=== PATIENT | female | born 1950 | race Caucasian/White ===

== ENCOUNTER 2022-06-05 14:07 | Emergency (ER) | payer OTHER ==
--- OUTSIDE RECORDS SUMMARY | 2022-06-05 14:10 | XMS REPORT | Continuity of Care Document ---
:1950 Author Organization [facility] t Address [address] [place] [address] Dr. Young [address] [place] [address] Care Team Providers Name Role Phone EMILEE BORRERO Attending Clinician Unavailable Doctor Unassigned, Gutierrez Attending Clinician Unavailable Emilee Borrero MD Attending Clinician Payers Payer Name Policy Type Policy Number Effective Date Expiration Date Lb tran [employer] MEDICARE ADV [id number] 2019 00:00:00 Problems This patient has no known problems. Allergies, Adverse Reactions, Alerts Allergy Allergy Status Severity Reaction(s) Onset Inactive Treating Comm ents Source Name Type Date Date Clinician NO KNOWN Drug Active Univers ALLERGIE Class ity of S [facility] Social History Social Habit Start Date Stop Date Quantity Comments Source Sex Assigned At Universit y of [facility] Exposure to Not sure [facility] SARS-CoV-2 [facility] (event) [place] Alcohol intake 2020-05-05 2020-05-05 Ex-drinker [facility] 00:00:00 00:00:00 (finding) [facility] Tobacco use and 2020-05-05 2020-05-05 Never used Universit y of exposure 00:00:00 00:00:00 [facility] Smoking Status Start Date Stop Date Source Never smoker [facility] Medications Ordered Filled Start Stop Current Ordering Indication Dosage Frequency Signature Comments Components Source Medication Medication Date Date Medication? Clinician (SIG) Name Name levothyroxi Yes Take by Uni vers ne sodium 05-05 mouth. ity of (LEVOTHYROX 19:40: [place] INE ORAL) [facility] Branch insulin Yes inject Univers glargine,hu 05-05 under the ity of m.rec.anlog 19:40: skin. [place] (BASAGLAR 29 [facility] KWIKPEN Branch U-100 INSULIN SC) GLIMEPIRIDE 2020-0 Yes Take by Uni vers ORAL 7-24 mouth. ity of 19:40: [place] [address] Medical Branch timolol 0.5 2020-0 Yes 1[drp] 1 Drop 2 Univers % 7-24 (two) ity of ophthalmic 19:40: times [place] solution 29 daily. Medical Branch levothyroxi 2020-0 Yes Take by Uni vers ne sodium 7-24 mouth. ity of (LEVOTHYROX 19:40: [place] INE ORAL) 29 Medical Branch insulin 2020-0 Yes inject Univers glargine,hu 7-24 under the ity of .rec.anlog 19:40: skin. [place] ([address] U-100 INSULIN SC) GLIMEPIRIDE 2020-0 Yes Take by Uni vers ORAL 7-24 mouth. ity of 19:40: [place] [address] Medical Branch timolol 0.5 2020-0 Yes 1[drp] 1 Drop 2 Univers % 7-24 (two) ity of ophthalmic 19:40: times [place] solution 29 daily. Medical Branch levothyroxi 2020-0 Yes Take by Uni vers ne sodium 7-24 mouth. ity of (LEVOTHYROX 19:40: [place] INE ORAL) 29 Medical Branch insulin 2020-0 Yes inject Univers glargine,hu 7-24 under the ity of .rec.anlog 19:40: skin. [place] ([address] U-100 INSULIN SC) GLIMEPIRIDE 2020-0 Yes Take by Uni vers ORAL 7-24 mouth. ity of 19:40: [place] [address] Medical Branch timolol 0.5 2020-0 Yes 1[drp] 1 Drop 2 Univers % 7-24 (two) ity of ophthalmic 19:40: times [place] solution 29 daily. Medical Branch promethazin 2020-0 Yes Take by Uni vers e HCl 7-24 mouth. ity of (PROMETHAZI 19:29: [place] NE ORAL) 23 Medical Branch LAMOTRIGINE 2020-0 Yes Take by Uni vers ORAL 7-24 mouth. ity of 19:29: [place] 23 Medical Branch promethazin 2020-0 Yes Take by Uni vers e HCl 7-24 mouth. ity of (PROMETHAZI 19:29: [place] NE ORAL) 23 Medical Branch LAMOTRIGINE 2020-0 Yes Take by Uni vers ORAL 7-24 mouth. ity of 19:29: [place] [facility] Branch promethazin 2020-0 Yes Take by Uni vers e HCl 7-24 mouth. ity of (PROMETHAZI 19:29: [place] [facility] ORAL 23 Medical Branch LAMOTRIGINE 2020-0 Yes Take by Uni vers ORAL 7-24 mouth. ity of 19:29: [place] [facility] Branch lisinopril 2020-0 Yes 40mg Take 40 mg U nivers 40 mg 7-16 by mouth ity of tablet 00:00: daily. [place] [facility] lisinopril 2020-0 Yes 40mg Take 40 mg U nivers 40 mg 7-16 by mouth ity of tablet 00:00: daily. [place] [facility] lisinopril 2020-0 Yes 40mg Take 40 mg U nivers 40 mg 7-16 by mouth ity of tablet 00:00: daily. [place] [facility] clonazePAM 2020-0 Yes TAKE 1 Unive rs 0.5 mg 6-23 TABLET BY ity of tablet 00:00: MOUTH AT [place] [address] BEDTIME Medical FOR Branch ANXIETY FOR INSOMNIA clonazePAM 2020-0 Yes TAKE 1 Unive rs 0.5 mg 6-23 TABLET BY ity of tablet 00:00: MOUTH AT [place] [address] BEDTIME Medical FOR Branch ANXIETY FOR INSOMNIA clonazePAM 2020-0 Yes TAKE 1 Unive rs 0.5 mg 6-23 TABLET BY ity of tablet 00:00: MOUTH AT [place] [address] BEDTIME Medical FOR Branch ANXIETY FOR INSOMNIA atorvastati 2020-0 Yes 40mg Take 40 mg Univers n 40 mg 6-12 by mouth ity of tablet 00:00: daily. [place] [facility] atorvastati 2020-0 Yes 40mg Take 40 mg Univers n 40 mg 6-12 by mouth ity of tablet 00:00: daily. [place] [facility] atorvastati 2020-0 Yes 40mg Take 40 mg Univers n 40 mg 6-12 by mouth ity of tablet 00:00: daily. [place] [facility] amLODIPine 2020-0 Yes 5mg Take 5 mg Un thai 5 mg tablet 6-06 by mouth ity of 00:00: daily. [place] [facility] amLODIPine 2020-0 Yes 5mg Take 5 mg Un thai 5 mg tablet 6-06 by mouth ity of 00:00: daily. [place] [facility] amLODIPine 2020-0 Yes 5mg Take 5 mg Un thai 5 mg tablet 6-06 by mouth ity of 00:00: daily. [address] Vital Signs Vital Name Observation Time Observation Value Comments Source Systolic blood 2020-05-05 19:26:00 126 mm[Hg] Univer sity of pressure [facility] Diastolic blood 2020-05-05 19:26:00 80 mm[Hg] Unive rsity [facility] Heart rate 2020-05-05 19:26:00 90 /min [facility] Body temperature 2020-05-05 19:26:00 36.61 [facility] 2020-05-05 19:26:00 18 /min [facility] Body height 2020-05-05 19:26:00 157.5 cm [facility] Body weight 2020-05-05 19:26:00 78.926 kg [facility] BMI 2020-05-05 19:26:00 31.83 kg/m2 [facility] Procedures Procedure Date / Time Performed Performing Clinician Sour e PATIENT QUESTIONNAIRE 2020-05-15 05:01:00 Doctor Unassigned, No [facility] Encounters Start End Encounter Admission Attending Care Care Encounter Source Date/Time Date/Time Type Type Clinicians Facility Department ID 2021-05-09 2021-05-09 Outpatient R ADUM, [facility] [id number] Univers 15:30:00 15:30:00 EMILEE [id number] [facility] 2021-05-09 2021-05-09 Outpatient R ADUM, [facility] [id number] Univers 15:30:00 15:30:00 EMILEE [facility] 2021-05-07 2021-05-07 Outpatient R ADUM, [facility] [id number] Univers 13:00:00 13:00:00 EMILEE [id number] [facility] 2020-12-16 2020-12-[address] [facility] [id number] Univers 15:40:00 [facility] [facility] [id number] Univers 15:30:00 [facility]:30:[facility]16 2020-05-16 [id number] Univers 15:00:00 15:00:00 EMILEE [id number] jorge l of [facility] 2020-05-15 2020-05-15 Orders Doctor ADELINE [id number] Univers 00:00:00 00:00:00 Only Unassigned, TIMO [id number] ity of Gutierrez [facility] [id number] [place] [id number] [address] 2020-05-05 2020-05-05 [facility] [id number] Univers 14:01:34 15:36:09 Visit Emilee Gore [id number] ity [id number] [id number] [address] 2020-05-05 2020-05-05 [facility] [id number] Univers 14:00:00 14:00:00 EMILEE [facility] Results This patient has no known results.
[2022-06-05] MEDS ORDERED: FAMOTIDINE 20 MG/2 ML VIAL IV ONE (15:02)
--- NOTE | 2022-06-05 15:15 | RAD REPORT ---
EXAM DESCRIPTION: CT - Head Brain Wo Cont - 06/05/2022 3:02 pm CLINICAL HISTORY: Mental status change, unknown cause COMPARISON: HEAD BRAIN W O CONTRAST dated 12/23/2008; HEAD BRAIN W O CONTRAST dated 09/04/1999 TECHNIQUE: All CT scans are performed using dose optimization technique as appropriate and may inclu de automated exposure control or mA/KV adjustment according to patient size. 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 Chronic small vessel ischemic changes. Small mucus retention cyst in the left maxillary sinus. The calvarium is intact. 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 No acute large vascular territory infarct or intracranial hemorrhage.
--- NOTE | 2022-06-05 15:19 | RAD REPORT ---
EXAM DESCRIPTION: RAD - Chest Single View - 06/05/2022 3:13 pm CLINICAL HISTORY: AMS COMPARISON: CHEST SINGLE VIEW dated 06/26/2012; CHEST PA AND LAT 2 VIEW dated 04/11/2009; CHEST SINGLE VIEW dated 12/23/2008; ABDOMEN 1 VIEW KUB dated 07/19/2008 FINDINGS: Lines: None. Lungs: No evidence of edema or pneumonia. Pleural: No significant pleural effusions or pneumothorax. Cardiac: The heart size is within normal limits. Bones: No acute fractures. Other: IMPRESSION: No acute cardiopulmonary disease.
[2022-06-05 15:39] LABS: Absolute Lymphocytes (CBC) 0.9 K/uL (0.7-4.9); Hematocrit 34.7 % (36.0-45.0); Lymphocytes % 16.8 % (15.3-44.8); MCV 96.1 fL (80-100); MPV 7.3 fL (7.6-11.3); RBC Red Blood Cell Count 3.61 M/uL (3.86-4.86)
[2022-06-05 16:52] LABS: Albumin 3.4 g/dL (3.4-5.0); Bilirubin Total 0.5 mg/dL (0.2-1.0); Magnesium 2.4 mg/dL (1.8-2.4); Protein, Total 6.8 g/dL (6.4-8.2); Troponin High Sensitivity 17.1 pg/mL (<58.9)
[2022-06-05 16:53] LABS: Potassium 2.8 mmol/L (3.5-5.1)
--- NOTE | 2022-06-05 17:14 | ER ---
Nurse's Notes [facility] Name: Lu Asher Age: 72 yrs Sex: Female : 1950 Arrival Date: 06/05/2022 Time: 14:11 Bed 10 Private MD: Diagnosis: Hypoglycemia, unspecified;Altered mental status, unspecified Presentation: 06/05 14:36 Chief complaint: Spouse and/or significant other states: Per spouse pt was not kb3 responding appropirately and he was unable to wake her at home. Upon EMS arrival BGL 28. PT received 250ml D10W, BGL increased to 136 and pt became responsive, answering questions appropriately. Coronavirus screen: Vaccine status: Patient reports receiving the 2nd dose of the covid vaccine. Client denies travel out of the [place] in the last 14 days. Ebola Screen: Patient negative for fever greater than or equal to 101.5 degrees Fahrenheit, and additional compatible Ebola Virus Disease symptoms Patient denies exposure to infectious person. Patient denies travel to an Ebola-affected area in the 21 days before illness onset. No symptoms or risks identified at this time. Initial Sepsis Screen: Does the patient meet any 2 criteria? No. Patient's initial sepsis screen is negative. Does the patient have a suspected source of infection? No. Patient's initial sepsis screen is negative. Risk Assessment: Do you want to hurt yourself or someone else? Patient reports no desire to harm self or others. Onset of symptoms was June 05, 2022 at 12:30. 14:36 Method Of Arrival: EMS: [facility] kb3 14:36 Acuity: SANGEETHA 3 kb3 Triage Assessment: 14:39 General: Appears in no apparent distress. Behavior is calm, cooperative. Pain: Denies kb3 pain. Historical: - Allergies: 14:39 No Known Allergies; kb3 - PMHx: 14:39 Depressive disorder; Diabetes mellitus; Hypertensive disorder; Hypothyroidism; Chronic kb3 pain; Anxiety; - Immunization history:: Adult Immunizations up to date, Client reports receiving the 2nd dose of the Covid vaccine, Last tetanus immunization: unknown. - Social history:: Smoking status: Patient denies any tobacco usage or history of. Screenin:00 Fall Risk None identified. No fall in past 12 months (0 pts). No secondary diagnosis (0 kb3 pts). IV access (20 points). Ambulatory Aid- None/Bed Rest/Nurse Assist (0 pts). Gait- Weak (10 pts.). Mental Status- Oriented to own ability (0 pts). Total Jenkins Fall Scale indicates Low Risk Score (25-44 pts). Fall prevention measures have been instituted. Side Rails Up X 2 Placed close to Nursing Station Frequent Obs/Assesments occuring Family Present and informed to notify staff if they need to leave bedside As available Patient and Family Educated on Fall Prevention Program and strategies. 16:00 Abuse screen: Denies threats or abuse. Denies injuries from another. Nutritional kb3 screening: No deficits noted. Tuberculosis screening: No symptoms or risk factors identified. Assessment: 14:47 General: See triage note. kb3 15:35 General: BGL 76, JUICE PROVIDED. kb3 16:00 General: BGL 86. kb3 17:00 General: BGL 86. kb3 Vital Signs: 14:36 BP 140 / 57; Pulse 56; Resp 18; Temp 98; Pulse Ox 100% ; Weight 58.97 kg; Height 5 ft. kb3 2 in. (157.48 cm); Pain 0/10; 16:00 BP 136 / 67; Pulse 64; Resp 18; Pulse Ox 99% ; Pain 0/10; kb3 17:00 BP 131 / 61; Pulse 60; Resp 18; Pulse Ox 100% ; Pain 0/10; kb3 14:36 Body Mass Index 23.78 (58.97 kg, 157.48 cm) kb3 ED Course: 14:11 Patient arrived in ED. bd 14:17 Regan Stokes MD is Attending Physician. kdr 14:35 Pat Vargas, RN is Primary Nurse. kb3 14:39 Triage completed. kb3 14:39 Arm band placed on right wrist. kb3 14:[address] via stretcher. kb3 15:03 Head Brain Wo Cont In Process Unspecified. EDMS 15:15 XRAY Chest (1 view) In Process Unspecified. EDMS 15:31 COVID-19 SARS RT PCR (Document "Date of Onset" if Symptomatic) Sent. kb3 15:31 Flu Sent. kb3 15:31 Strep Sent. kb3 15:32 CBC with Diff Sent. kb3 15:32 Magnesium Sent. kb3 15:32 NT PRO-BNP Sent. kb3 15:32 Troponin HS Sent. kb3 15:32 Inserted saline lock: 22 gauge in right antecubital area, using aseptic technique. kb3 16:00 Patient has correct armband on for positive identification. Fall risk band placed. kb3 Placed in gown. Bed in low position. Call light in reach. Side rails up X2. Adult w/ patient. 16:00 No provider procedures requiring assistance completed. kb3 16:53 Notified ED physician of a critical lab result(s). potassium 2.8. jl7 17:12 Johnathan Lai MD is Referral Physician. kdr 17:47 IV discontinued, intact, bleeding controlled, No redness/swelling at site. kb3 Administered Medications: 15:20 Drug: Pepcid (famotidine) 20 mg Route: IVP; Site: right antecubital; kb3 17:00 Follow up: Response: No adverse reaction kb3 Medication: 14:47 VIS not applicable for this client. kb3 Outcome: 17:14 Discharge ordered by . kdr 17:46 Discharged to home via wheelchair. kb3 17:46 Condition: stable 17:46 Discharge instructions given to patient, family, Instructed on discharge instructions, follow up and referral plans. medication usage, Demonstrated understanding of instructions, follow-up care, medications. 17:48 Patient left the ED. kb3 Signatures: Dispatcher [employer] EDMS Debra Esquivel Kevin, MD MD kdr Richie Garcia RN RN jl7 Pat Vargas, RN RN kb3 Corrections: (The following items were deleted from the chart) 14:39 14:36 Onset of symptoms was June 05, 2022 at 09:00 kb3 kb3 17:44 17:44 Fall Risk None identified. kb3 kb3 17:45 17:44 Abuse screen: Denies threats or abuse. Denies injuries from another. kb3 kb3 17:45 17:44 Nutritional screening: No deficits noted. kb3 kb3 17:45 17:44 Tuberculosis screening: No symptoms or risk factors identified. kb3 kb3 17:45 17:44 Fall Risk None identified. No fall in past 12 months (0 pts). No secondary kb3 diagnosis (0 pts). IV access (20 points). Ambulatory Aid- None/Bed Rest/Nurse Assist (0 pts). Gait- Weak (10 pts.). Mental Status- Oriented to own ability (0 pts). Total Jenkins Fall Scale indicates Low Risk Score (25-44 pts). Fall prevention measures have been instituted. Side Rails Up X 2 Placed close to Nursing Station Frequent Obs/Assesments occuring Family Present and informed to notify staff if they need to leave bedside As available Patient and Family Educated on Fall Prevention Program and strategies. kb3
--- NOTE | 2022-06-05 17:15 | EDPHYS ---
Physician Documentation [facility] Name: Lu Asher Age: 72 yrs Sex: Female : 1950 Arrival Date: 06/05/2022 Time: 14:11 Bed 10 Private MD: ED Physician Regan Stokes HPI: 06/05 17:32 This 72 yrs old Female presents to ER via EMS with complaints of Altered mental status. kdr 17:32 EMS was called to the residence due to the patient's fact that the patient was altered kdr and poorly responsive. They discovered that her blood glucose was approximately 30. He gave her an amp of D50 at which point her glucose increased to 130, And the patient woke up and was appropriate. On arrival in the ED, the patient still was awake and appropriate. Her glucose level decreased into the 70s. She was given oral glucose in the form of juice and other items. She maintained her level of alertness and her glucose level subsequently without issue.. Onset: The symptoms/episode began/occurred suddenly, just prior to arrival. Severity of symptoms: At their worst the symptoms were mild moderate in the emergency department the symptoms are unchanged. The patient has not experienced similar symptoms in the past. The patient has not recently seen a physician. The patient states that she has been feeling poorly for the past week or 2 and that she has not been eating well. Further her throat has been sore and is been difficult for her to eat. She has continued intermittently to take her insulin despite her poor nutrition and occasional vomiting.. Historical: - Allergies: 14:39 No Known Allergies; kb3 - PMHx: 14:39 Depressive disorder; Diabetes mellitus; Hypertensive disorder; Hypothyroidism; Chronic kb3 pain; Anxiety; - Immunization history:: Adult Immunizations up to date, Client reports receiving the 2nd dose of the Covid vaccine, Last tetanus immunization: unknown. - Social history:: Smoking status: Patient denies any tobacco usage or history of. ROS: 17:32 Constitutional: Negative for fever, chills, and weight loss, Eyes: Negative for injury, kdr pain, redness, and discharge, ENT: Negative for injury, pain, and discharge, Neck: Negative for injury, pain, and swelling, Cardiovascular: Negative for chest pain, palpitations, and edema, Respiratory: Negative for shortness of breath, cough, wheezing, and pleuritic chest pain, Abdomen/GI: Negative for abdominal pain, nausea, vomiting, diarrhea, and constipation, Back: Negative for injury and pain, : Negative for injury, bleeding, discharge, and swelling, MS/Extremity: Negative for injury and deformity, Skin: Negative for injury, rash, and discoloration, Psych: Negative for depression, anxiety, suicide ideation, homicidal ideation, and hallucinations, Allergy/Immunology: Negative for hives, rash, and allergies, Endocrine: Negative for neck swelling, polydipsia, polyuria, polyphagia, and marked weight changes, Hematologic/Lymphatic: Negative for swollen nodes, abnormal bleeding, and unusual bruising. 17:32 Neuro: Positive for altered mental status, weakness. Exam: 17:32 Constitutional: This is a well developed, well nourished patient who is awake, alert, kdr and in no acute distress. Head/Face: Normocephalic, atraumatic. Eyes: Pupils equal round and reactive to light, extra-ocular motions intact. Lids and lashes normal. Conjunctiva and sclera are non-icteric and not injected. Cornea within normal limits. Periorbital areas with no swelling, redness, or edema. Neck: Trachea midline, no thyromegaly or masses palpated, and no cervical lymphadenopathy. Supple, full range of motion without nuchal rigidity, or vertebral point tenderness. No Meningismus. Chest/axilla: Normal chest wall appearance and motion. Nontender with no deformity. No lesions are appreciated. Cardiovascular: Regular rate and rhythm with a normal S1 and S2. No gallops, murmurs, or rubs. Normal PMI, no JVD. No pulse deficits. Respiratory: Lungs have equal breath sounds bilaterally, clear to auscultation and percussion. No rales, rhonchi or wheezes noted. No increased work of breathing, no retractions or nasal flaring. Abdomen/GI: Soft, non-tender, with normal bowel sounds. No distension or tympany. No guarding or rebound. No evidence of tenderness throughout. Back: No spinal tenderness. No costovertebral tenderness. Full range of motion. Skin: Warm, dry with normal turgor. Normal color with no rashes, no lesions, and no evidence of cellulitis. MS/ Extremity: Pulses equal, no cyanosis. Neurovascular intact. Full, normal range of motion. Neuro: Awake and alert, GCS 15, oriented to person, place, time, and situation. Cranial nerves II-XII grossly intact. Motor strength 5/5 in all extremities. Sensory grossly intact. Cerebellar exam normal. Normal gait. Psych: Awake, alert, with orientation to person, place and time. Behavior, mood, and affect are within normal limits. 17:54 ECG was reviewed by the Attending Physician. kdr Vital Signs: 14:36 BP 140 / 57; Pulse 56; Resp 18; Temp 98; Pulse Ox 100% ; Weight 58.97 kg; Height 5 ft. kb3 2 in. (157.48 cm); Pain 0/10; 16:00 BP 136 / 67; Pulse 64; Resp 18; Pulse Ox 99% ; Pain 0/10; kb3 17:00 BP 131 / 61; Pulse 60; Resp 18; Pulse Ox 100% ; Pain 0/10; kb3 14:36 Body Mass Index 23.78 (58.97 kg, 157.48 cm) kb3 MDM: 17:14 Patient medically screened. kdr 17:32 Data reviewed: vital signs, nurses notes, lab test result(s), radiologic studies. kdr Counseling: I had a detailed discussion with the patient and/or guardian regarding: the historical points, exam findings, and any diagnostic results supporting the discharge/admit diagnosis, lab results, radiology results, the need for further work-up and treatment in the hospital. 06/05 14:33 Order name: Glucose, Ancillary Testing; Complete Time: 15:57 EDMS 06/05 14:37 Order name: CBC with Diff; Complete Time: 15:57 [facility] 06/05 14:37 Order name: Magnesium [facility] 06/05 14:37 Order name: NT PRO-BNP [facility] 06/05 14:37 Order name: Troponin HS [facility] 06/05 14:37 Order name: Comprehensive Metabolic Panel [facility] 06/05 14:37 Order name: XRAY Chest (1 view); Complete Time: 15:57 [facility] 06/05 14:38 Order name: Strep; Complete Time: 15:57 kdr 06/05 14:39 Order name: Flu; Complete Time: 16:35 [facility] 06/05 14:39 Order name: COVID-19 SARS RT PCR (Document "Date of Onset" if Symptomatic); Complete kdr Time: 16:35 06/05 15:38 Order name: Glucose, Ancillary Testing; Complete Time: 15:57 EDMS 06/05 15:48 Order name: Throat Culture EDMS 06/05 16:14 Order name: Glucose, Ancillary Testing; Complete Time: 16:35 EDMS 06/05 17:45 Order name: Glucose, Ancillary Testing EDMS 06/05 14:37 Order name: EKG; Complete Time: 14:38 kdr 06/05 14:37 Order name: Cardiac monitoring; Complete Time: 15:31 kdr 06/05 14:37 Order name: EKG - Nurse/Tech; Complete Time: 15:31 kdr 06/05 14:37 Order name: IV Saline Lock; Complete Time: 15:32 kdr 06/05 14:37 Order name: Labs collected and sent; Complete Time: 15:32 kdr 06/05 14:37 Order name: O2 Per Protocol; Complete Time: 15:32 kdr 06/05 14:37 Order name: O2 Sat Monitoring; Complete Time: 15:32 kdr 06/05 14:38 Order name: CT Head Brain wo Cont kdr 06/05 14:42 Order name: Head Brain Wo Cont; Complete Time: 15:57 EDMS 06/05 14:42 Order name: FSBS: Every 30 minutes; Complete Time: 15:31 kdr EC:54 Rate is 55 beats/min. Rhythm is regular, Sinus bradycardia with No ectopy. QRS [place] is kdr Normal. [place] interval is normal. QRS interval is normal. QT interval is normal. Clinical impression: NSR w/ Non-specific ST/T Changes and Sinus bradycardia. Administered Medications: 15:20 Drug: Pepcid (famotidine) 20 mg Route: IVP; Site: right antecubital; kb3 17:00 Follow up: Response: No adverse reaction kb3 Disposition Summary: 06/05/22 17:14 Discharge Ordered Location: Home kdr Problem: an acute exacerbation kdr Symptoms: are resolved kdr Condition: Stable kdr Diagnosis - Hypoglycemia, unspecified kdr - Altered mental status, unspecified kdr Followup: kdr - With: Johnathan Lai MD - When: 2 - 3 days - Reason: If symptoms return, Further diagnostic work-up, Recheck today's complaints, Continuance of care, Re-evaluation by your physician Discharge Instructions: - Discharge Summary Sheet kdr - Hypoglycemia, [id number] kdr - Preventing Hypoglycemia kdr Forms: - Medication Reconciliation Form kdr - Thank You Letter kdr Signatures: Dispatcher Amyst Regan Crowley MD MD kdr Pat Vargas, RN RN kb3
[2022-06-05 20:06] VITALS: TEMP 98
[2022-06-05 20:17] VITALS: BP 131/61; O2SAT 100
--- NOTE | 2022-06-06 15:13 | EKG ---
Test Date: 2022-06-05 Test Time: 15:14:55 Pyridine Recovery Operator: PAXTON MEASUREMENT RESULTS: Intervals: Rate: 55 MA: 168 QRSD: 138 QT: 542 QTc: 518 [place]: P: 49 MA: 168 QRS: 17 T: 35 INTERPRETIVE STATEMENTS: Sinus bradycardia Right bundle branch block Abnormal ECG Compared to ECG 06/26/2012 17:00:17 Right bundle-branch block now present Sinus tachycardia no longer present Electronically Signed On 06-06-22 15:11:49 CDT by Pierre Connolly
== END 2022-06-05 17:48 | disposition home or self-care (01) ==
LOC: ER 14:07
DX: E11.649 Type 2 diabetes mellitus with hypoglycemia without coma (principal); I10 Essential (primary) hypertension; Z20.822 Contact with and (suspected) exposure to COVID-19
CPT/HCPCS: 87070; 85025; 36415; 83735; 82947 ×4; 87081; 84484; 80053; 83880; 87804 ×2; 70450; 71045; U0003; 93005

== ENCOUNTER → 2022-08-05 | Day surgery (SDC) | payer OTHER ==
[2022-08-02 16:22] LABS: Absolute Lymphocytes (CBC) 1.7 K/uL (0.7-4.9); Hematocrit 33.1 % (36.0-45.0); Lymphocytes % 28.9 % (15.3-44.8); MCV 94.1 fL (80-100); MPV 6.5 fL (7.6-11.3); RBC Red Blood Cell Count 3.52 M/uL (3.86-4.86)
[2022-08-02 16:42] LABS: ALT/SGPT 20 U/L (12-78); AST/SGOT 9 U/L (15-37); Alkaline Phosphatase 61 U/L (45-117); Amylase 60 U/L (25-115); BUN Blood Urea Nitrogen 38 mg/dL (7-18); Bicarbonate 21 mmol/L (21-32); Bilirubin Total 0.4 mg/dL (0.2-1.0); Glomerular Filtration Rate 29 ml/min (=/>90); Glucose Level 122 mg/dL (74-106); Lipase 305 U/L (73-393); Potassium 4.3 mmol/L (3.5-5.1); Protein, Total 7.6 g/dL (6.4-8.2); Sodium Level 139 mmol/L (136-145)
[2022-08-02 16:45] LABS: Bilirubin Direct < 0.1 mg/dL (0-0.2)
[~2022-08-05] MED LIST: CEFOXITIN SODIUM 1 GM/VIAL ONE; CODEINE 30MG/APAP 300MG TAB ONE; FENTANYL CITR 100 MCG/2 ML ONE; GLYCOPYRROLATE 0.2 MG/ML SYR ONE; KETOROLAC 30 MG/ML INJ ONE; LIDOCAINE 2% MPF 5 ML VIAL ONE; MIDAZOLAM HCL 2 MG/2 ML INJ ONE; NA CHLORIDE 0.9% 1,000 ML ONE; NEOSTIGMINE 1 MG/ML -5 ML ONE; NS 0.9% VIAL 10 ML ONE; ONDANSETRON 4 MG/2 ML VIAL ONE; Phenylephrine HCl 10 MG/ML 1 ML VIAL ONE; ROCURONIUM 50 MG/5 ML VIAL IV ONE; dexAMETHasone 10 MG/ML VIAL ONE; propofoL 200 MG/20 ML VIAL IV ONE
--- NOTE | 2022-08-05 10:20 | P.BOP ---
Preoperative diagnosis: Acute cholecystitis, sympt cholelithiasis, RUQ abd pain Postoperative diagnosis: same Primary procedure: Laparoscopic cholecystectomy Dye Maker: LETICIA VELAZQUEZ (WAREHOUSE REPRESENTATIVE) Estimated blood loss: <10cc Specimen: gb Findings: as above Anesthesia: General Complications: None Transferred to: Recovery Room Condition: Good
[2022-08-05] MEDS: HYDROMORPHONE HCL 1 MG/ML INJ ONE ×2 (10:39→10:49)
--- NOTE | 2022-08-05 12:41 | DS ---
Diagnoses: Acute cholecystitis, symptomatic cholelithiasis, right upper quadrant abdominal pain. Procedure: Laparoscopic cholecystectomy. Disposition: Home. Activity: As tolerated. No heavy lifting. Follow up in my office in 1 week. Call for appointment at [phone]. Keep area dry for 48 hours, then may shower. MUNA Voice ID: [id number] Report ID: [id number]
--- NOTE | 2022-08-05 12:41 | OP ---
Date of Procedure: 08/05/2022 Surgeon: Francisco Javier Howell MD Lube Technician: Joanne Ramirez. Preoperative Diagnoses: Acute cholecystitis, symptomatic cholelithiasis, right upper quadrant abdomi nal pain. Postoperative Diagnoses: Acute cholecystitis, symptomatic cholelithiasis, right upper quadrant abdom inal pain. Procedure: Laparoscopic cholecystectomy. Estimated Blood Loss: Less than 10 mL. Specimen: Gallbladder. Anesthesia: General plus local. Indication: This is the case of a 72-year-old patient, who comes to us with above diagnoses. Fully explained the benefits, alternatives, and risks of laparoscopic possible open cholecystectomy, which include, but not limited to infection, bleeding, damage to adjacent structures, anesthesia complicati on, choledocholithiasis, bile leak, pancreatitis, [place], and even . She also understands this may not relieve any symptoms. She might need more than one surgical intervention. She understood, erik d a consent. Procedure In Detail: The patient was brought to the operating room, placed in supine position. Anes thesia was done without complication. Abdominal area was prepped and draped in the usual sterile fas hion. Marcaine 0.5% was injected for local anesthetic followed by sharp incision of the skin in the supraumbilical region. The incision was carried down to fascia, which was opened under direct vision . Peritoneum was encountered, opened under direct vision. Vicryl #1 placed inside the fascia. Villa on trocar was carefully introduced. Pneumoperitoneum was obtained. I placed 3 more trocars, 5 mm ea ch one of them in the epigastric right upper quadrant area under direct visualization. This allowed me to visualize the area of the gallbladder, still looked distended, barely can hold it, so I proceed ed to deflate the gallbladder partially with the help of Endo needle under direct visualization. Nee dle was removed once again under direct visualization. Grasper was placed on the puncture site and t hat will be in the fundus of the gallbladder, another grasper in the infundibulum, retracting the gal lbladder in the inferolateral fashion, exposing the triangle of Calot, and obtaining critical view. Cystic duct and cystic artery were clearly isolated, freed circumferentially and a connection between those and the gallbladder were clearly identified. I proceeded to ligate those by using at least 3 clips proximal, 1 clip distal, ligation in middle. Same was done with the cystic artery. No bile le ak. No bleeding. The gallbladder was removed from liver using Bovie cauterizer and removed from abd ominal cavity using EndoCatch through the umbilical incision. The area was inspected once again. No bile leak. No bleeding. Clips were intact. At that moment, I proceeded to remove the trocars unde r direct vision. Deflated the pneumoperitoneum. Closed the fascia with #1 Vicryl. Irrigated the crouch bcutaneous tissue, closed that with 3-0 chromic and skin with rita. Sponge count, instrument coun ts correct. The patient tolerated the procedure well. The patient was sent to recovery in stable co ndition. JOSE/ANNA Voice ID: [id number] Report ID: [id number]
[2022-08-05 14:37] VITALS: BP 95/51; TEMP 96.2; O2SAT 96
== END | disposition home or self-care (01) ==
LOC: OR 08:18
PROVIDERS: ATTEND Surgery
PROC: 0FT44ZZ Resection of Gallbladder, Percutaneous Endoscopic Approach (ICD-10-PCS; principal; 2022-08-05 10:30)
DX: K80.10 Calculus of gallbladder with chronic cholecystitis without obstruction (principal); R10.11 Right upper quadrant pain; E78.00 Pure hypercholesterolemia, unspecified; E11.9 Type 2 diabetes mellitus without complications; F32.A Depression, unspecified
CPT/HCPCS: 85025; 80048; 36415; 82150; 82947 ×2; 80076; 88304; 83690; 47562; J2704; J2370; J2001; J3010; J1100; A4216 ×2; J1170; J2710; J7030; J0694; J2405; J2250

== ENCOUNTER 2022-10-23 17:42 | Inpatient (IN) | payer OTHER ==
--- OUTSIDE RECORDS SUMMARY | 2022-10-23 17:45 | XMS REPORT | Continuity of Care Document ---
:1950 [address] [facility] t Address [address] [place] [address] [address]. [address] [place] [address] Care Team Providers Name Role Phone EMILEE BORRERO Attending Clinician Unavailable Doctor Unassigned, Antares Attending Clinician Unavailable Emilee Borrero MD Attending Clinician Payers Payer Name Policy Type Policy Number Effective Date Expiration Date Lb tran [employer] MEDICARE ADV [id number] 2019 00:00:00 Problems This patient has no known problems. Allergies, Adverse Reactions, Alerts Allergy Allergy Status Severity Reaction(s) Onset Inactive Treating Comm ents Source Name Type Date Date Clinician NO KNOWN Drug Active Univers ALLERGIE Class ity of [facility] Social History Social Habit Start Date Stop Date Quantity Comments [facility] Exposure to Not sure [facility] SARS-CoV-2 [facility] (event) [place] Alcohol intake 2020-05-05 2020-05-05 Ex-drinker [facility] 00:00:00 00:00:00 (finding) [facility] Tobacco use and 2020-05-05 2020-05-05 Never used Universit y of exposure 00:00:00 00:00:00 [facility] Smoking Status Start Date Stop Date Source Never smoker [facility] Medications Ordered Filled Start Stop Current Ordering Indication Dosage Frequency Signature Comments Components Source Medication Medication Date Date Medication? Clinician (SIG) Name Name levothyroxi Yes Take by Uni vers ne sodium 05-05 mouth. ity of (LEVOTHYROX 19:40: [place] INE ORAL) [facility] Branch insulin Yes inject Univers glargine,hu 05-05 under the ity of m.rec.anlog 19:40: skin. [place] (BASAGLAR [facility] KWIKPEN Branch U-100 INSULIN SC) GLIMEPIRIDE 2020-0 Yes Take by Uni vers ORAL 7-24 mouth. ity of 19:40: [place] 29 Medical Branch timolol 0.5 2020-0 Yes 1[drp] 1 Drop 2 Univers % 7-24 (two) ity of ophthalmic 19:40: times [place] solution 29 daily. Medical Branch levothyroxi 2020-0 Yes Take by Uni vers ne sodium 7-24 mouth. ity of (LEVOTHYROX 19:40: [place] INE ORAL) 29 Medical Branch insulin 2020-0 Yes inject Univers glargine,hu 7-24 under the ity of m.rec.anlog 19:40: skin. [place] ([address] U-100 INSULIN SC) GLIMEPIRIDE 2020-0 Yes Take by Uni vers ORAL 7-24 mouth. ity of 19:40: [place] [address] Medical Branch timolol 0.5 2020-0 Yes 1[drp] 1 Drop 2 Univers % 7-24 (two) ity of ophthalmic 19:40: times [place] solution 29 daily. Medical Branch levothyroxi 2020-0 Yes Take by Uni vers ne sodium 7-24 mouth. ity of (LEVOTHYROX 19:40: [place] INE ORAL) 29 Medical Branch insulin 2020-0 Yes inject Univers glargine,hu 7-24 under the ity of .rec.anlog 19:40: skin. [place] ([address] U-100 INSULIN SC) GLIMEPIRIDE 2020-0 Yes Take by Uni vers ORAL 7-24 mouth. ity of 19:40: [place] [address] Medical Branch timolol 0.5 2020-0 Yes 1[drp] [...] HCl 7-24 mouth. ity of (PROMETHAZI 19:29: [place] NE ORAL 23 Medical Branch LAMOTRIGINE 2020-0 Yes [...] BY ity of tablet 00:00: MOUTH AT [place] [address] BEDTIME Medical FOR Branch ANXIETY FOR INSOMNIA clonazePAM 2020-0 Yes TAKE 1 Unive rs 0.5 mg 6-23 TABLET BY ity of tablet 00:00: MOUTH AT [place] [address] BEDTIME Medical FOR Branch ANXIETY FOR INSOMNIA clonazePAM 2020-0 Yes TAKE 1 Unive rs 0.5 mg 6-23 TABLET BY ity of tablet 00:00: MOUTH AT [place] [address] BEDTIME Medical FOR Branch ANXIETY FOR INSOMNIA [...] 6-06 by mouth ity of 00:00: daily. [address] Vital Signs Vital Name Observation Time Observation Value Comments Source Systolic blood 2020-05-05 19:26:00 126 mm[Hg] Univer sity of pressure [facility] Diastolic blood 2020-05-05 19:26:00 80 mm[Hg] Unive rsity [facility] Heart rate 2020-05-05 19:26:00 90 /min [facility] Body temperature 2020-05-05 19:26:00 36.61 Brittni [facility] Res[facility] rate 2020-05-05 19:26:00 18 /min [facility] Body height 2020-05-05 19:26:00 157.5 cm [facility] Body weight 2020-05-05 19:26:00 78.926 kg [facility] BMI 2020-05-05 19:26:00 31.83 kg/m2 [facility] Procedures Procedure Date / Time Performed Performing Clinician [facility] e PATIENT QUESTIONNAIRE 2020-05-15 05:01:00 Doctor Unassloly, Phyllis [facility] Encounters Start End Encounter Admission Attending Care Care Encounter Source Date/Time Date/Time Type Type Clinicians Facility Department ID 2021-05-09 2021-05-09 Outpatient R GISSELL, [facility] [id number] Univers 15:30:00 15:30:00 [facility] 2020-12-16 2020-12-16 Outpatient [facility] [id number] Univers 15:40:00 15:40:00 ity [facility] 2020-11-18 2020-11-18 Outpatient [facility] [id number] Univers 15:30:00 15:30:[facility] 2020-05-15 2020-05-15 Orders Doctor LR [id number] Univers 00:00:00 00:00:00 Only Unassigned, TIMO [id number] ity of [facility] [id number] Georgi as [id number] [address] 2020-05-05 2020-05-05 [facility] [id number] Univers 14:01:34 15:36:09 Visit Emilee Gore [id number] Mary [id number] Rhianna Gonzalez [id number] [facility] [address] 2020-05-05 2020-05-05 Outpatient Axel BORRERO [facility] [id number] [facility] 14:00:00 14:00:00 EMILEE coats [facility] Results This patient has no known results.
[2022-10-23 18:53] LABS: Urine Blood Trace-intact (Negative); Urine Glucose Negative (Negative); Urine Protein 2+ (Negative); Urine pH 5.5 (5.0-7.0)
[2022-10-23 19:10] LABS: Absolute Lymphocytes (CBC) 1.2 K/uL (0.7-4.9); Hematocrit 30.2 % (36.0-45.0); Lymphocytes % 17.7 % (15.3-44.8); MCV 89.7 fL (80-100); MPV 6.2 fL (7.6-11.3); RBC Red Blood Cell Count 3.37 M/uL (3.86-4.86)
[2022-10-23 19:27] LABS: Bilirubin Total 0.5 mg/dL (0.2-1.0); Protein, Total 7.8 g/dL (6.4-8.2)
[2022-10-23 19:37] LABS: Potassium 2.8 mmol/L (3.5-5.1)
--- NOTE | 2022-10-23 20:35 | EDPHYS ---
Physician Documentation [facility] Name: Lu Asher Age: 72 yrs Sex: Female : 1950 Arrival Date: 10/23/2022 Time: 17:49 Bed 13 Private MD: Maxiimliano Mejia ED Physician Josselyn Lambert HPI: 10/23 18:36 This 72 yrs old Female presents to ER via Ambulatory with complaints of Abnormal Lab pm1 Results. 18:36 Patient presented to ER as instructed by Dr. Morin For evaluation of abnormal renal pm1 function. Severity of symptoms: in the emergency department the symptoms are worse. The patient has experienced similar episodes in the past, chronically. 72-year-old female presents to the ER with complaints of abnormal renal function. Patient reports she had labs drawn this AM for preop for hemorrhoid surgery with Dr Howell. Patient was sent for evaluation in the ER by Dr Morin and she discussed the case with Dr Lambert. She would like the patient to be admitted to the hospital. Patient does not have any complaints except for abnormal labs. Historical: - Allergies: 18:33 No Known Allergies; aa5 - PMHx: 18:33 Anxiety; Chronic pain; depressive disorder; diabetes mellitus; Hypertensive disorder; aa5 Hypothyroidism; - Immunization history:: Adult Immunizations unknown. - Social history:: Smoking status: Patient denies any tobacco usage or history of. ROS: 18:36 Constitutional: Negative for fever, chills, and weight loss, Cardiovascular: Negative pm1 for chest pain, palpitations, and edema, Respiratory: Negative for shortness of breath, cough, wheezing, and pleuritic chest pain, Abdomen/GI: Negative for abdominal pain, nausea, vomiting, diarrhea, and constipation. 18:36 : Negative for injury, bleeding, discharge, and swelling, MS/Extremity: Negative for injury and deformity, Skin: Negative for injury, rash, and discoloration, Neuro: Negative for headache, weakness, numbness, tingling, and seizure. 18:36 Back: Positive for chronic back pain. 18:36 All other systems are negative. Exam: 18:36 Constitutional: This is a well developed, well nourished patient who is awake, alert, pm1 and in no acute distress. Head/Face: Normocephalic, atraumatic. 18:36 Back: No spinal tenderness. No costovertebral tenderness. Full range of motion. Skin: Warm, dry with normal turgor. Normal color with no rashes, no lesions, and no evidence of cellulitis. MS/ Extremity: Pulses equal, no cyanosis. Neurovascular intact. Full, normal range of motion. 18:36 Eyes: Exam is negative for acute changes, Extraocular movements: no acute changes, Conjunctiva: no acute changes, no injection. 18:36 Cardiovascular: Exam negative for acute changes, Rate: normal, Rhythm: regular, Pulses: no pulse deficits are appreciated, Heart sounds: normal. 18:36 Respiratory: Exam negative for acute changes, respiratory distress, shortness of breath, Breath sounds: are clear throughout. 18:36 Abdomen/GI: Inspection: abdomen appears normal, Palpation: abdomen is soft and non-tender, in all quadrants. 18:36 Neuro: Exam negative for acute changes, Orientation: is normal, Mentation: is normal, Motor: is normal, moves all fours. Vital Signs: 18:29 BP 114 / 76; Pulse 82; Resp 16 S; Temp 97.7(TE); Pulse Ox 100% on R/A; Weight 57.61 kg aa5 (R); Height 5 ft. 2 in. (157.48 cm); 19:58 BP 125 / 64; Pulse 74; Resp 16; Pulse Ox 100% on R/A; Pain 0/10; mb9 21:29 BP 130 / 73; Pulse 68; Resp 14; Pulse Ox 100% on R/A; mb9 22:22 BP 124 / 76; Pulse 64; Resp 16; Pulse Ox 100% on R/A; mb9 23:36 BP 131 / 73; Pulse 61; Resp 17; Pulse Ox 99% on R/A; mb9 18:29 Body Mass Index 23.23 (57.61 kg, 157.48 cm) aa5 MDM: 18:34 Patient medically screened. pm1 19:25 Data reviewed: vital signs. pm1 20:18 ED course: Call to Dr Lai. No answer and voice mail full. pm1 20:20 ED course: Call to Dr Morin. No answer. Will admit the patient to hospital as she pm1 requested when she discussed the patient with Dr Lambert. 20:31 Counseling: I had a detailed discussion with the patient and/or guardian regarding: the pm1 historical points, exam findings, and any diagnostic results supporting the discharge/admit diagnosis, lab results, the need for further work-up and treatment in the hospital. 10/23 18:34 Order name: CBC with Diff; Complete Time: 19:23 pm1 10/23 18:34 Order name: CMP; Complete Time: 19:37 pm1 10/23 18:53 Order name: Urine Dipstick-Ancillary; Complete Time: 19:23 EDMS 10/23 20:46 Order name: SARS RAPID; Complete Time: 21:38 mb9 10/24 02:56 Order name: CBC with Automated Diff EDMS 10/24 02:56 Order name: Basic Metabolic Panel EDMS 10/23 18:34 Order name: IV Saline Lock; Complete Time: 19:04 pm1 10/23 18:34 Order name: Urine Dipstick-Ancillary (obtain specimen); Complete Time: 18:52 pm1 Administered Medications: 20:45 Drug: NS 0.9% 1000 ml Route: IV; Rate: 100 ml/hr; Site: right antecubital; mb9 Disposition Summary: 10/23/22 20:35 Hospitalization Ordered Hospitalization Status: Observation pm1 Provider: Johnathan Lai pm1 Condition: Stable pm1 Problem: new pm1 Symptoms: are unchanged pm1 Bed/Room Type: Standard pm1 Location: Telemetry/MedSurg (observation)(10/24/22 07:23) Room Assignment: [facility](10/24/22 07:25) em1 Diagnosis - Acute on Chronic Renal Failure pm1 Forms: - Medication Reconciliation Form pm1 - SBAR form pm1 Signatures: Dispatcher [employer] Evelin Jane RN [place] em1 Libby Roberts RN RN Barbie Smallwood RN RN Gareth Maradiaga NP SLUBBER RUNNER pm1 Lu Way RN RN mb9 Corrections: (The following items were deleted from the chart) 23:48 20:35 Telemetry/MedSurg (observation) pm1 cg 23:48 20:35 pm1 10/24 07:23 10/23 23:48 [facility] ER HOLD cg 10/24 07:23 10/23 23:48 ERHOLD- cg 10/24 07: 07:23 dw dw 07:25 232 dw em1
--- NOTE | 2022-10-23 20:35 | ER ---
Nurse's Notes [facility] Name: Lu Asher Age: 72 yrs Sex: Female : 1950 Arrival Date: 10/23/2022 Time: 17:49 Bed 13 Private MD: Maximiliano Mejia Diagnosis: Acute on Chronic Renal Failure Presentation: 10/23 18:29 Method Of Arrival: Ambulatory aa5 18:29 Chief complaint: Patient states: Sent here by Dr. Howell for Creatinine of 4.51, aa5 reports labs were for pre-op. Reports on and off nausea/vomiting for "weeks". Pt sent by Dr. Morin (nephrology). Coronavirus screen: At this time, the client does not indicate any symptoms associated with coronavirus-19. Ebola Screen: Patient denies travel to an Ebola-affected area in the 21 days before illness onset. Initial Sepsis Screen: Does the patient meet any 2 criteria? No. Patient's initial sepsis screen is negative. Does the patient have a suspected source of infection? No. Patient's initial sepsis screen is negative. Risk Assessment: Do you want to hurt yourself or someone else? Patient reports no desire to harm self or others. Onset of symptoms was October 2022. 18:29 Acuity: SANGEETHA 3 aa5 Historical: - Allergies: 18:33 No Known Allergies; aa5 - PMHx: 18:33 Anxiety; Chronic pain; depressive disorder; diabetes mellitus; Hypertensive disorder; aa5 Hypothyroidism; - Immunization history:: Adult Immunizations unknown. - Social history:: Smoking status: Patient denies any tobacco usage or history of. Screenin:45 [facility] ED Fall Risk Assessment (Adult) History of falling in the last 3 months, mb9 including since admission No falls in past 3 months (0 pts) Confusion or Disorientation No (0 pts) Intoxicated or Sedated No (0 pts) Impaired Gait No (0 pts) Mobility Assist Device Used No (0 pt) Altered Elimination No (0 pt) Score/Fall Risk Level 0 - 2 = Low Risk Oriented to surroundings, Maintained a safe environment, Educated pt \\T\\ family on fall prevention, incl call for assistance when getting out of bed. Abuse screen: Denies threats or abuse. Nutritional screening: No deficits noted. Tuberculosis screening: No symptoms or risk factors identified. Assessment: 19:25 Reassessment: pt brought back to room 13. mb9 19:57 General: Appears in no apparent distress. comfortable, Behavior is cooperative, mb9 appropriate for age. Pain: Denies pain. Neuro: Browne Agitation-Sedation Scale (RASS): 0 - Alert and Calm Level of Consciousness is awake, alert, obeys commands, Oriented to person, place, time, situation, Appropriate for age. Cardiovascular: Capillary refill < 3 seconds is brisk Patient's skin is warm and dry. Rhythm is regular. Respiratory: Airway is patent Respiratory effort is even, unlabored, Respiratory pattern is regular, symmetrical. GI: Abdomen is flat, non-distended, Bowel sounds present X 4 quads. Abd is soft and non tender X 4 quads. Reports nausea. : No signs and/or symptoms were reported regarding the genitourinary system. EENT: No signs and/or symptoms were reported regarding the EENT system. Derm: Skin is pink, warm \\T\\ dry. Musculoskeletal: Range of motion: intact in all extremities. 21:29 Reassessment: No changes from previously documented assessment. Patient and/or family mb9 updated on plan of care and expected duration. Pain level reassessed. Patient is alert, oriented x 3, equal unlabored respirations, skin warm/dry/pink. 22:22 Reassessment: No changes from previously documented assessment. Patient and/or family mb9 updated on plan of care and expected duration. Pain level reassessed. Patient is alert, oriented x 3, equal unlabored respirations, skin warm/dry/pink. 23:36 Reassessment: No changes from previously documented assessment. Patient and/or family mb9 updated on plan of care and expected duration. Pain level reassessed. Patient is alert, oriented x 3, equal unlabored respirations, skin warm/dry/pink. Vital Signs: 18:29 BP 114 / 76; Pulse 82; Resp 16 S; Temp 97.7(TE); Pulse Ox 100% on R/A; Weight 57.61 kg aa5 (R); Height 5 ft. 2 in. (157.48 cm); 19:58 BP 125 / 64; Pulse 74; Resp 16; Pulse Ox 100% on R/A; Pain 0/10; mb9 21:29 BP 130 / 73; Pulse 68; Resp 14; Pulse Ox 100% on R/A; mb9 22:22 BP 124 / 76; Pulse 64; Resp 16; Pulse Ox 100% on R/A; mb9 23:36 BP 131 / 73; Pulse 61; Resp 17; Pulse Ox 99% on R/A; mb9 18:29 Body Mass Index 23.23 (57.61 kg, 157.48 cm) aa5 ED Course: 17:49 Patient arrived in ED. am2 17:50 Maximiliano Mejia MD is Private Physician. am2 18:29 Gareth Cisneros NP is PHCP. pm1 18:29 Josselyn Lambert MD is Attending Physician. pm1 18:29 Arm band placed on. aa5 18:33 Triage completed. aa5 18:45 Placed in gown. Bed in low position. Call light in reach. Side rails up X 1. Client mb9 placed on continuous cardiac and pulse oximetry monitoring. NIBP monitoring applied. 19:04 CBC with Diff Sent. oe 19:04 CMP Sent. oe 19:04 Initial lab(s) drawn, by me, sent to lab. Inserted saline lock: 20 gauge in right bc6 antecubital area, using aseptic technique. 19:[address], ISABEL is Primary Nurse. mb9 19:36 Notified Nurse Practitioner and/or Physician Mechanical Repair Worker of a critical lab result(s), bb potassium of 2.8, creatinine of 5.21 Gareth Cisneros NP notified. 20:32 Johnathan Lai MD is Hospitalizing Provider. pm1 21:29 SARS RAPID Sent. mb9 10/24 03:27 Primary Nurse role handed off by Lu Way, ISABEL wm Administered Medications: 10/23 20:45 Drug: NS 0.9% 1000 ml Route: IV; Rate: 100 ml/hr; Site: right antecubital; mb9 Medication: 22:23 VIS not applicable for this client. mb9 Outcome: 20:35 Decision to Hospitalize by Provider. pm1 10/24 08:58 Patient left the ED. vg1 Signatures: Li Bah RN RN bb Libby Roberts RN RN aa5 Gareth Cisneros, CHAD COMPUTER ANALYST pm1 Nilesh Mix Amanda am2 Tierra Dsouza RN RN vg1 Mi Sheets, Lu Holder, RN RN mb9 Mitzi Hernandez bc6 Corrections: (The following items were deleted from the chart) 10/23 18:33 18:29 Method Of Arrival: Ambulatory aa5 aa5 18:33 18:29 Chief complaint: Patient states: Sent here by Dr. Howell for Creatinine of aa5 4.51, reports labs were for pre-op. Reports on and off nausea/vomiting for "weeks". Pt sees Dr. Morin (nephrology). aa5
[2022-10-23] MEDS ORDERED: NA CHLORIDE 0.9% 1,000 ML ONE (20:50)
[2022-10-23 21:38] LABS: SARS-CoV-2 Antigen Rapid Res Negative (Negative)
[2022-10-23] MEDS: NA CHLORIDE 0.9% 1,000 ML IV SCH (23:25)
[2022-10-23 23:43] VITALS: BMI 23.3
[2022-10-24 02:22] LABS: Absolute Lymphocytes (CBC) 1.6 K/uL (0.7-4.9); Hematocrit 29.3 % (36.0-45.0); MPV 6.1 fL (7.6-11.3); RBC Red Blood Cell Count 3.26 M/uL (3.86-4.86)
[2022-10-24 02:56] LABS: Potassium 2.9 mmol/L (3.5-5.1)
[2022-10-24] MEDS ORDERED: POTASSIUM CL 40 MEQ in NA CHLORIDE 0.9% 500 ML IV SCH (09:00)
[2022-10-24] MEDS: NA CHLORIDE 0.9% 1,000 ML IV SCH ×2 (09:38→15:30)
--- NOTE | 2022-10-24 16:20 | P.HP ---
Certification for Inpatient Patient admitted to: Inpatient With expected LOS: >2 Midnights Practitioner: I am a practitioner with admitting privileges, knowledge of patient current condition, hospital course, and medical plan of care. Services: Services provided to patient in accordance with Admission requirements found in Title 42 Section 412.3 of the Code of Federal Regulations Patient History Date of Service: 10/24/22 Reason for admission: LOW K AND HIGH CREAT History of Present Illness: ELIAZAR HAS NO SS AND WAS SENT TO ER BY DR JIM FOR LOW K AND HIGH CREAT FROM LAB DONE BY DR NG. SHE IS ON IV FLUIDS AND K REPLACEMENT. SHE HAS NOT BEEN ON DIURETICS OR HAS HAD ANY GI LOSS OF FLUIDS. Allergies No Known Allergies Allergy (Verified 08/02/22 15:53) Home medications list reviewed: Yes Home Medications: Buspirone HCl [Buspar] 10 mg PO BID 10/24/22 Diphenhydramine HCl [Benadryl Allergy] 25 mg PO DAILY 10/24/22 Duloxetine HCl [Cymbalta] 1 tab PO DAILY 10/24/22 Gabapentin 300 mg PO DAILY 10/24/22 Leflunomide 10 mg PO DAILY 10/24/22 Levothyroxine Sodium [Levothyroxine] 50 mcg PO [id number] 10/24/22 Metformin HCl 1,000 mg PO BID 10/24/22 Mirtazapine 7.5 mg PO BEDTIME 10/24/22 Pantoprazole Sodium [Protonix] 40 mg PO DAILY 10/24/22 Potassium Chloride 10 meq PO BID 10/24/22 Ubidecarenone [Co Q-10] 400 mg PO DAILY 10/24/22 hydrOXYzine HCL [Atarax] 25 mg PO BID PRN 10/24/22 lisinopriL [Lisinopril] 20 mg PO DAILY 10/24/22 traMADol HCL [Ultram*] 1 tab PO Q6H PRN 10/24/22 - Past Medical/Surgical History Diabetic: Yes - Social History Smoking Status: Never smoker Alcohol use: No CD- Drugs: No Caffeine use: No Review of Systems 10-point ROS is otherwise unremarkable Physical Examination - Vital Signs Temperature: 98.4 F Blood Pressure: 124/64 Pulse: 85 Respirations: 18 Pulse Ox (%): 100 - Physical Exam General: In no apparent distress, Oriented x3 HEENT: Atraumatic, PERRLA, Mucous membr. moist/pink, EOMI, Sclerae nonicteric Neck: Supple, 2+ carotid pulse no bruit, No LAD, Without JVD or thyroid abnormality Respiratory: Clear to auscultation bilaterally, Normal air movement Cardiovascular: Regular rate/rhythm, Normal S1 S2 Gastrointestinal: Normal bowel sounds, No tenderness Musculoskeletal: No tenderness Integumentary: No rashes Neurological: Normal gait, Normal speech, Normal strength at 5/5 x4 extr, Normal tone, Normal affect Lymphatics: No axilla or inguinal lymphadenopathy - Studies Laboratory Data (last 24 hrs) 10/23/22 19:00: Sodium 139, Potassium 2.8 L*, BUN 73 H, Creatinine 5.21 H*, Glucose 79, Total Bilirubin 0.5, AST 14 L, ALT 21, Alkaline Phosphatase 83 10/23/22 19:00: WBC 7.00, Hgb 10.1 L, Hct 30.2 L, Plt Count 378 Assessment and Plan - Problems (Diagnosis) (1) Acute prerenal failure Current Visit: Yes Status: Acute Plan: IVFLUIDS SHE IS IMPROVING ALREADY IT IS UNCLEAR WHY SHE HAS THIS. I SEE NO PROVOCATIVE FACTORS. DR. KERR ON CASE. (2) Hypokalemia Current Visit: Yes Status: Acute Plan: K REPLACED AND IT IS 3.8 NOW. - Advance Directives Does patient have a Living Will: No Does patient have a Durable POA for Healthcare: No
[2022-10-24] MEDS: METRONIDAZOLE 500mg IVPB 500 MG/100 ML BAG IV SCH (17:04)
--- NOTE | 2022-10-24 18:46 | CON ---
Date of Consultation: 10/24/2022 Reason For Consultation: Elevated BUN and creatinine, hypokalemia. History Of Present Illness: This is a pleasant 72-year-old female with significant past medical history of hypertension, hyperlipidemia, chronic kidney disease secondary to hypertension nephrosclerosis, baseline creatinine as of July 2022 of 1.8. The patient was in her regular state of health. According to her, she started having diarrhea for the last couple of weeks and started feeling fatigued and weakness. For that reason, reported to the hospital to her primary care. Her primary care done labs showing creatinine above 4.5. For that reason, the patient referred to the hospital. The patient denied taking any nonsteroidal, no recent change in her medication. No IV contrast or hospitalization. Upon arrival to the hospital, the patient's creatinine was 5.2, GFR of 8, and potassium 2.8. The patient was started on gentle hydration, gradually creatinine down to 4.8, GFR of 9. Still has significant hypokalemia. Past Medical History: Includes; 1. Hypertension. 2. Hyperlipidemia. 3. Chronic kidney disease, baseline creatinine 1.8, GFR of 39. 4. Diabetes complicated with neuropathy and nephropathy. 5. Hypertension. Allergies: NO KNOWN DRUGS ALLERGY. Social History: Denied smoking. Denied drinking. Denied drugs abuse. Family History: Positive for hypertension. Review of Systems: Head and Neck: No red eye. No ear pain. GI: Has decreased intake. Has diarrhea. : No polyuria. No dysuria. No hematuria. 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 Respiratory: No shortness of breath. No orthopnea. Cardiovascular: No leg swelling. Endocrine: No polydipsia. Skin: No rash. Home Medications: Include tramadol, lisinopril 20 mg, hydroxyzine, KCl, pantoprazole, metformin, gabapentin, leflunomide, and buspirone. Current Medications: KCl, lisinopril, and tramadol. Physical Examination: Vital Signs: When I saw the patient; blood pressure 124/64, pulse of 85, afebrile. Chest: Clear to auscultation. Heart: S1, S2. Systolic murmur. Abdomen: Soft, nontender. Extremity: No edema. Neuro: Alert. No focality. No tremor. Laboratory Data: WBC 5.8, H and H 9.7/29.3. Sodium 141, potassium 2.9, bicarb 18, chloride 111, BUN 73, creatinine 4.8, GFR of 9, calcium 8.2. Protein creatinine +2, not quantified yet. Has serology workup before, was negative. Assessment And Plan: 1. Acute kidney injury secondary to poor perfusion, ATN secondary to GI loss, superimposed with VANESSA inhibitor. I am going to go ahead and discontinue VANESSA inhibitor. We will send for workup with the presence of the anemia to rule out any light chain disease. I am going to go ahead and send for serum protein electrophoresis. We will start the patient on IV fluid and we will follow up. 2. Hypertension, controlled, optimal with the presence of acute kidney injury. To rule out light chain disease, I am going to send for anemia workup and we will send for serum protein electrophoresis. 3. Hypertension with the presence of acute kidney injury. Discontinue VANESSA inhibitor. If the blood pressure turned to be not controlled, okay to initiate the patient on beta-errol. 4. Hypokalemia with presence of current kidney function. I am going to replace cautiously with 40 KCl and we will follow up labs 2 weeks after the supplement. We will add magnesium to evaluate. 5. Gastroenteritis as by primary. We will start the patient on IV fluid and we will start the patient on Flagyl. 6. Diabetes as by primary. Thank you, Dr. Lai for allowing us to participate in the care of your patient. Time spent examining the patient [id number] reviewing data lab and radiology discussing the case with the patient placing order discussing the case with the steamfitter apprentice including nursing discussing the case with the hospitalist more than 65-minute RADHA Voice ID: [id number] Report ID: [id number] [facility] SYSTEM[facility]
[2022-10-24] MEDS: BUSPIRONE HCL 5 MG TABLET PO SCH (22:07)
[2022-10-24] MEDS: MIRTAZAPINE 15 MG TAB PO SCH (22:07)
[2022-10-24 23:31] LABS: UR PROTEIN 26.5 mg/dL (<11.9); Urine Protein/Creatinine Ratio 0.45 ratio (<0.15)
[2022-10-24 23:42] LABS: Specific Gravity 1.009 (1.005-1.030); Urine Bacteria <20 /HPF (<20); Urine Bilirubin NEGATIVE (Negative); Urine Blood Negative (Negative); Urine Clarity Clear (Clear); Urine Color Colorless (Yellow); Urine Glucose NEGATIVE (Negative); Urine Mucus Slight /HPF (None Seen); Urine Protein TRACE (Negative); Urine RBC <5 /HPF (None Seen); Urine Urobilinogen Normal (Normal)
[2022-10-25] MEDS: METRONIDAZOLE 500mg IVPB 500 MG/100 ML BAG IV SCH ×3 (00:22→17:50)
[2022-10-25] MEDS: LEVOTHYROXINE SOD 0.05 MG TABLET PO SCH (05:53)
[2022-10-25 06:11] LABS: RBC Red Blood Cell Count 2.78 M/uL (3.86-4.86)
[2022-10-25 06:54] LABS: Albumin 2.9 g/dL (3.4-5.0); Ferritin 251.7 ng/mL (8-388); Phosphorus 2.8 mg/dL (2.5-4.9); Thyroid Stimulating Hormone 0.72 uIU/mL (0.358-3.740)
[2022-10-25 06:57] LABS: Magnesium 1.3 mg/dL (1.6-2.4)
[2022-10-25] MEDS ORDERED: POTASSIUM CL SA 10 MEQ TAB PO ONE (07:36)
[2022-10-25] MEDS ORDERED: MAGNESIUM 50% 3 GM in NA CHLORIDE 0.9% 100 ML IV ONE (07:36)
[2022-10-25 07:44] LABS: Rheumatoid Factor NEG (NEG)
[2022-10-25] MEDS ORDERED: POTASSIUM CL 40 MEQ in NA CHLORIDE 0.9% 500 ML IV SCH (08:00)
[2022-10-25] MEDS: DULOXETINE 30 MG CAP PO SCH (08:16)
[2022-10-25] MEDS: BUSPIRONE HCL 5 MG TABLET PO SCH ×2 (08:16→21:52)
[2022-10-25] MEDS: GABAPENTIN 300 MG CAP PO SCH (08:16)
[2022-10-25] MEDS: DIPHENHYDRAMINE 25 MG TAB/CAP PO SCH (08:16)
[2022-10-25] MEDS: LEFLUNOMIDE 10 MG PO SCH (08:18)
--- NOTE | 2022-10-25 08:48 | RAD REPORT ---
EXAM DESCRIPTION: US - Renal Ultrasound-Complete - 10/25/2022 1:48 am CLINICAL HISTORY: DAVID Flank pain COMPARISON: Abdomen Exam Complete dated 07/24/2022 FINDINGS: Both kidneys are normal in size, shape and echotexture. Small benign bilateral renal cysts . The right kidney measures 8.7 x 4.9 x 4.5 cm. No hydronephrosis, focal mass or perinephric fluid. The left kidney measures 8.7 x 5.2 x 3.5 cm. No hydronephrosis, focal mass or perinephric fluid. The urinary bladder is incompletely distended without gross abnormality seen. IMPRESSION: Small bilateral benign renal cysts, otherwise negative study.
[2022-10-25] MEDS ORDERED: lisinopriL 20 MG TAB PO SCH (09:00)
[2022-10-25] MEDS: NA CHLORIDE 0.9% 1,000 ML IV SCH (12:10)
--- NOTE | 2022-10-25 12:39 | P.PN ---
Subjective Date of Service: 10/25/22 Chief Complaint: LOW K AND HIGH CREAT Subjective: Improving SHE NEVER FELT BAD. Review of Systems 10-point ROS is otherwise unremarkable Physical Examination - Vital Signs Temperature: 97.3 F Blood Pressure: 124/67 Pulse: 72 Respirations: 12 Pulse Ox (%): 98 - Physical Exam General: Alert, In no apparent distress HEENT: Atraumatic, PERRLA, EOMI Neck: Supple, JVD not distended Respiratory: Clear to auscultation bilaterally, Normal air movement Cardiovascular: Regular rate/rhythm, Normal S1 S2 Gastrointestinal: Normal bowel sounds, No tenderness Musculoskeletal: No tenderness Integumentary: No rashes Neurological: Normal speech, Normal tone, Normal affect Lymphatics: No axilla or inguinal lymphadenopathy - Studies Laboratory Data (last 24 hrs) 10/25/22 05:52: Sodium 143, Potassium 3.0 L D, BUN 67 H, Creatinine 3.55 H, Glucose 112 H, Uric Acid 13.0 H, Phosphorus 2.8, Magnesium 1.3 L* 10/24/22 15:38: Potassium 3.8 D Medications List Reviewed: Yes Assessment And Plan - Current Problems (Diagnosis) (1) Acute prerenal failure Current Visit: Yes Status: Acute Plan: IVFLUIDS SHE IS IMPROVING ALREADY IT IS UNCLEAR WHY SHE HAS THIS. I SEE NO PROVOCATIVE FACTORS. DR. KERR ON CASE. CREAT IS COMING DOWN NOT SURE WHY SHE HAD THIS. MAY HAVE POOR PO INTAKE. (2) Hypokalemia Current Visit: Yes Status: Acute Plan: K REPLACED AND IT IS 3.8 NOW.
--- NOTE | 2022-10-25 14:54 | P.PN ---
Subjective Date of Service: 10/25/22 Chief Complaint: LOW K AND HIGH CREAT Subjective: No new changes Physical Examination - Vital Signs Temperature: 97.3 F Blood Pressure: 124/67 Pulse: 72 Respirations: 12 Pulse Ox (%): 98 - Physical Exam General: Other (appears as her stated age) HEENT: Atraumatic, Normocephalic Neck: Supple, JVD not distended Respiratory: Other (symmetric chest expansion) Cardiovascular: No rubs, No murmurs Gastrointestinal: Soft and benign, No guarding Musculoskeletal: No clubbing Integumentary: No warmth Neurological: Normal tone Urinary: Other (no bladder distention) External genitalia: Deferred Rectal: Deferred - Studies Laboratory Data (last 24 hrs) 10/25/22 05:52: Sodium 143, Potassium 3.0 L D, BUN 67 H, Creatinine 3.55 H, Glucose 112 H, Uric Acid 13.0 H, Phosphorus 2.8, Magnesium 1.3 L* 10/24/22 15:38: Potassium 3.8 D Medications List Reviewed: Yes Assessment And Plan - Plan 1. Acute kidney injury secondary to poor perfusion, ATN secondary to GI loss, superimposed with VANESSA inhibitor. SCr improved to 3.6. Hold ACEI, ARB. [place] po fluid intake. IV fluid if po intake remains poor. Monitor renal panel. 2. Hypertension. Cont current med regimen. 3. Low serum bicarb. Likely primary metab acidosis 2/2 renal failure. F/u ABG. 4. Hypokalemia. KCl repletion prn. 5. HypoMg. Mg repletion prn. 6. Gastroenteritis. Per primary team. 7. DM2. Per primary team. 8. Anemia. Monitor cbc.
[2022-10-25] MEDS: HEPARIN 5000 UNIT/ML 1 ML VIAL SQ SCH (17:50)
[2022-10-25] MEDS: TRAMADOL HCL 50 MG TAB PO PRN (20:22)
[2022-10-25] MEDS: MIRTAZAPINE 15 MG TAB PO SCH (21:52)
[2022-10-26] MEDS: HEPARIN 5000 UNIT/ML 1 ML VIAL SQ SCH ×3 (00:29→10:18)
[2022-10-26] MEDS ORDERED: POTASSIUM CL SA 10 MEQ TAB PO ONE ×2 (00:29→00:37)
[2022-10-26] MEDS: METRONIDAZOLE 500mg IVPB 500 MG/100 ML BAG IV SCH ×3 (00:29→16:09)
[2022-10-26 03:22] LABS: Albumin 2.9 g/dL (3.4-5.0); Phosphorus 1.7 mg/dL (2.5-4.9); Potassium 3.2 mmol/L (3.5-5.1)
[2022-10-26] MEDS: LEVOTHYROXINE SOD 0.05 MG TABLET PO SCH (06:35)
[2022-10-26] MEDS: LEFLUNOMIDE 10 MG PO SCH (09:00)
[2022-10-26 09:58] LABS: Arterial Blood Carboxyhemoglob 0.9 % (0-1.5); Blood Gas Oxyhemoglobin 93.8 % (94-97); Blood O2 Saturation 96.6 % (92-98.5)
[2022-10-26] MEDS: DULOXETINE 30 MG CAP PO SCH (10:13)
[2022-10-26] MEDS: GABAPENTIN 300 MG CAP PO SCH (10:13)
[2022-10-26] MEDS: DIPHENHYDRAMINE 25 MG TAB/CAP PO SCH (10:13)
[2022-10-26] MEDS: BUSPIRONE HCL 5 MG TABLET PO SCH ×2 (10:13→20:42)
[2022-10-26] MEDS: NA CHLORIDE 0.9% 1,000 ML IV SCH (10:17)
[2022-10-26 10:55] LABS: Absolute Lymphocytes (CBC) 1.2 K/uL (0.7-4.9); Hematocrit 24.4 % (36.0-45.0); Lymphocytes % 25.1 % (15.3-44.8); MCV 90.7 fL (80-100); MPV 6.8 fL (7.6-11.3); RBC Red Blood Cell Count 2.69 M/uL (3.86-4.86)
[2022-10-26] MEDS ORDERED: MAGNESIUM SULFATE 1 gm IVPB 1 GM/100 ML BAG IV ONE (15:55)
[2022-10-26] MEDS ORDERED: POTASSIUM 25 MEQ EFFERV TAB PO ONE (15:55)
--- NOTE | 2022-10-26 15:58 | P.PN ---
Subjective Date of Service: 10/26/22 Chief Complaint: LOW K AND HIGH CREAT Subjective Pt with CKD baseline cr 1.3, had Adolfo peak Cr 5.3 today feels better will replace K and Mg will change fluid to ringer lactate General:awake and alert HEENT PERRLA, moist mucose membrane neck: supple, no elevated JVD CHEST; CTAB, no wheezes or rales HEART : RRR. Normal S1,2 no murmur or rub Abd: soft, Nt Ext: no edema Skin : No rash A/p 1. Acute kidney injury secondary to poor perfusion, ATN secondary to GI loss, superimposed with VANESSA inhibitor. SCr improved to 2.8. Hold ACEI, ARB. baseline cr 1.3 [place] po fluid intake. IV fluid if po intake remains poor. Monitor renal panel. 2. Hypertension. Cont current med regimen. 3.Meatbolic acidosis , will change fluid to ringer lactate 4. Hypokalemia. KCl repletion prn. 5. HypoMg. Mg repletion prn. 6. Gastroenteritis. Per primary team. 7. DM2. Per primary team. 8. Anemia. Monitor cbc. Physical Examination - Vital Signs Temperature: 97.5 F Blood Pressure: 134/71 Pulse: 82 Respirations: 14 Pulse Ox (%): 98 - Studies Medications List Reviewed: Yes
[2022-10-26] MEDS: Ringers Lactate 1,000 ML IV SCH (16:09)
--- NOTE | 2022-10-26 18:35 | PN ---
Subjective: Patient is feeling a lot better. Denies any chest pain, nausea, or vomiting. She has n o symptoms. Physical Examination: Vital Signs: Blood pressure 134/71, temperature 97.5. HEENT: No JVD. No carotid bruits. Chest: Clear. Heart: Regular. Abdomen: No guarding. No rebound. No rigidity. Laboratory Data: ABG shows pH of 7.31, pCO2 32, pO2 104. Her creatinine is down to 2.66. Her potas sium is slightly low at 3.0. Phosphorus lies slightly low at 1.7. Assessment And Plan: 1.Acute renal failure. She is improving gradually with IV fluids. Continue IV fluids. 2.Hypokalemia and hypophosphatemia. Patient is having replacement done by the Glass [employer] and foll ow up on daily lab. 3.She has a perirectal nodule and this to be removed by Dr. Howell, but I asked him to postpone th e surgery on an outpatient basis instead it doing it while she is here as her admission is for acute kidney injury and not because of the perirectal tumor, so we can leave that separately on an outpatie nt basis. CLEMENTD/MODL Voice ID: [id number] Report ID: [id number]
[2022-10-26] MEDS: MIRTAZAPINE 15 MG TAB PO SCH (20:42)
[2022-10-27] MEDS: METRONIDAZOLE 500mg IVPB 500 MG/100 ML BAG IV SCH ×2 (00:25→08:18)
[2022-10-27 03:30] LABS: Albumin 2.8 g/dL (3.4-5.0); Phosphorus 1.4 mg/dL (2.5-4.9); Potassium 3.1 mmol/L (3.5-5.1)
[2022-10-27] MEDS ORDERED: POTASSIUM 25 MEQ EFFERV TAB PO ONE (04:24)
[2022-10-27] MEDS: LEVOTHYROXINE SOD 0.05 MG TABLET PO SCH (05:57)
[2022-10-27] MEDS: GABAPENTIN 300 MG CAP PO SCH (08:19)
[2022-10-27] MEDS: DIPHENHYDRAMINE 25 MG TAB/CAP PO SCH (08:19)
[2022-10-27] MEDS: DULOXETINE 30 MG CAP PO SCH (08:19)
[2022-10-27] MEDS: BUSPIRONE HCL 5 MG TABLET PO SCH ×2 (08:19→20:29)
[2022-10-27] MEDS: LEFLUNOMIDE 10 MG PO SCH (08:23)
[2022-10-27] MEDS ORDERED: POTASSIUM PHOS 20 MEQ in NA CHLORIDE 0.9% 250 ML IV ONE (08:30)
[2022-10-27] MEDS: Ringers Lactate 1,000 ML IV SCH (13:29)
--- NOTE | 2022-10-27 13:55 | P.PN ---
Subjective Date of Service: 10/27/22 Chief Complaint: LOW K AND HIGH CREAT Subjective Pt with CKD baseline cr 1.3, had Adolfo peak Cr 5.3 today feels better no diarrhea or nausea Cont ringer lactate electrolytes replacement, will Add PO [place] General:awake and alert HEENT PERRLA, moist mucose membrane neck: supple, no elevated JVD CHEST; CTAB, no wheezes or rales HEART : RRR. Normal S1,2 no murmur or rub Abd: soft, Nt Ext: no edema Skin : No rash A/p 1. Acute kidney injury secondary to poor perfusion, ATN secondary to GI loss, superimposed with VANESSA inhibitor. SCr improved to 2.8. Hold ACEI, ARB. baseline cr 1.3 [place] po fluid intake. IV fluid if po intake remains poor. Monitor renal panel. 2. Hypertension. Cont current med regimen. 3.Meatbolic acidosis , will change fluid to ringer lactate 4. Hypokalemia. KCl repletion prn., will start daily KCL 5. HypoMg. Mg repletion prn. 6. Gastroenteritis. Per primary team. 7. DM2. Per primary team. 8. Anemia. Monitor cbc. 9. Hypercholermic acidosis : likely due to NS, fluid changed to ringer lactate, no need for sodium bicarbionte Physical Examination - Vital Signs Temperature: 97.1 F Blood Pressure: 144/79 Pulse: 82 Respirations: 14 Pulse Ox (%): 100 - Studies Medications List Reviewed: Yes
--- NOTE | 2022-10-27 15:04 | P.PN ---
Subjective Date of Service: 10/27/22 Chief Complaint: LOW K AND HIGH CREAT Subjective: Improving SHE NEVER FELT BAD. SHE IS STABLE, DOES NOT FEEL BAD. DENIES ANY PAIN Review of Systems 10-point ROS is otherwise unremarkable General: Weakness Respiratory: As per HPI Physical Examination - Vital Signs Temperature: 97.1 F Blood Pressure: 144/79 Pulse: 82 Respirations: 14 Pulse Ox (%): 100 - Physical Exam General: Oriented x3 HEENT: Atraumatic, PERRLA, EOMI Neck: Supple, JVD not distended Respiratory: Clear to auscultation bilaterally, Normal air movement Cardiovascular: Regular rate/rhythm, Normal S1 S2 Gastrointestinal: Normal bowel sounds, No tenderness Musculoskeletal: No tenderness Integumentary: No rashes Neurological: Normal speech, Normal tone, Normal affect Lymphatics: No axilla or inguinal lymphadenopathy - Studies Medications List Reviewed: Yes Assessment And Plan - Current Problems (Diagnosis) (1) Acute prerenal failure Current Visit: Yes Status: Acute Plan: IVFLUIDS SHE IS IMPROVING ALREADY IT IS UNCLEAR WHY SHE HAS THIS. I SEE NO PROVOCATIVE FACTORS. DR. KERR ON CASE. CREAT IS COMING DOWN NOT SURE WHY SHE HAD THIS. MAY HAVE POOR PO INTAKE. (2) Hypokalemia Current Visit: Yes Status: Acute Plan: K REPLACED AND IT IS 3.8 NOW. (3) Anemia Current Visit: Yes Status: Acute Plan: MAY BE FROM ANEMIA OF CHRONIC DISEASE. CHECK PROFILE. (4) Hypophosphatemia Current Visit: Yes Status: Acute Plan: REPLACE WITH K
[2022-10-27] MEDS: NEPRO SHAKE 237 ML CAN PO SCH ×2 (18:00→20:32)
[2022-10-27] MEDS: MIRTAZAPINE 15 MG TAB PO SCH (20:30)
[2022-10-27] MEDS ORDERED: NEPRO SHAKE 237 ML CAN PO SCH (21:00)
[2022-10-28] MEDS: Ringers Lactate 1,000 ML IV SCH (06:32)
[2022-10-28] MEDS: LEVOTHYROXINE SOD 0.05 MG TABLET PO SCH (06:32)
[2022-10-28 06:37] LABS: Albumin 2.6 g/dL (3.4-5.0); Magnesium 1.5 mg/dL (1.6-2.4); Phosphorus 2.4 mg/dL (2.5-4.9); Potassium 3.5 mmol/L (3.5-5.1)
[2022-10-28 07:27] LABS: Absolute Lymphocytes (CBC) 1.6 K/uL (0.7-4.9); Hematocrit 24.2 % (36.0-45.0); Lymphocytes % 29.5 % (15.3-44.8); MCV 89.6 fL (80-100); MPV 6.9 fL (7.6-11.3)
[2022-10-28] MEDS: BUSPIRONE HCL 5 MG TABLET PO SCH ×2 (08:17→20:26)
[2022-10-28] MEDS: GABAPENTIN 300 MG CAP PO SCH (08:17)
[2022-10-28] MEDS: POTASSIUM 25 MEQ EFFERV TAB PO SCH (08:17)
[2022-10-28] MEDS: DIPHENHYDRAMINE 25 MG TAB/CAP PO SCH (08:17)
[2022-10-28] MEDS: DULOXETINE 30 MG CAP PO SCH (08:18)
[2022-10-28] MEDS: NEPRO SHAKE 237 ML CAN PO SCH ×2 (08:18→20:28)
[2022-10-28 08:22] LABS: Potassium 3.9 mmol/L (3.5-5.1)
[2022-10-28] MEDS ORDERED: POTASSIUM CL SA 10 MEQ TAB PO ONE (09:00)
[2022-10-28] MEDS: LEFLUNOMIDE 10 MG PO SCH (09:00)
[2022-10-28] MEDS: levETIRAcetam 500 MG TAB PO SCH ×2 (16:56→19:08)
--- NOTE | 2022-10-28 17:31 | P.PN ---
Subjective Date of Service: 10/28/22 Chief Complaint: SHE FELT GREAT THIS AM. SHE WAS SITTING AND EATING, WANTING TO GO HOME. Subjective: Improving SHE NEVER FELT BAD. SHE IS STABLE, DOES NOT FEEL BAD. DENIES ANY PAIN LATER EARLY AFTERNOON I WAS CALLED BY NURSES THAT SHE HAD PASSED OUT STANDING UP AND NOT WAKING UP. SHE HAD TACHYCARDIA AND SLIGLTLY HIGH BP. I MOVED HER TO ICU FOR BETTER SUPERVISION. CALLED DR. RESENDEZ AND ORDERED EEG STAT. WE DECIDED TO START KEPPRA FOR ATYPICAL SEIZURES IT HAS WORKED WELL FOR MANY PATIENTS. SHE WAS FULLY AWAKE AFTER AN HOUR OR SO. Physical Examination - Vital Signs Temperature: 97.3 F Blood Pressure: 164/75 Pulse: 77 Respirations: 14 Pulse Ox (%): 100 - Physical Exam General: Oriented x3, Mild distress, Moderate distress HEENT: Atraumatic, PERRLA, EOMI Neck: Supple, JVD not distended Respiratory: Clear to auscultation bilaterally, Normal air movement Cardiovascular: Regular rate/rhythm, Normal S1 S2 Gastrointestinal: Normal bowel sounds, No tenderness Musculoskeletal: No tenderness Integumentary: No rashes Neurological: Normal speech, Normal tone, Normal affect Lymphatics: No axilla or inguinal lymphadenopathy - Studies Microbiology Data (last 24 hrs): 10/24/22 22:11 Clean Catch Urine [place] Count - Final >100,000 CFU/ML. 10/24/22 22:11 Clean Catch Urine - Final Staph Epidermidis Medications List Reviewed: Yes Assessment And Plan - Current Problems (Diagnosis) (1) Acute prerenal failure Current Visit: Yes Status: Acute Plan: IVFLUIDS SHE IS IMPROVING ALREADY IT IS UNCLEAR WHY SHE HAS THIS. I SEE NO PROVOCATIVE FACTORS. DR. KERR ON CASE. CREAT IS COMING DOWN NOT SURE WHY SHE HAD THIS. MAY HAVE POOR PO INTAKE. (2) Hypokalemia Current Visit: Yes Status: Acute Plan: K REPLACED AND IT IS 3.8 NOW. (3) Anemia Current Visit: Yes Status: Acute Plan: MAY BE FROM ANEMIA OF CHRONIC DISEASE. CHECK PROFILE. (4) Hypophosphatemia Current Visit: Yes Status: Acute Plan: REPLACE WITH K (5) Absence seizure, atypical Current Visit: Yes Status: Acute Plan: I AGREE WITH KEPPRA. MANY TIMES EXTENSIVE EVALUATION DOES NOT FIND ANYTHING AND WE DO HAVE TO DO THERAPEUTIC TRIAL. SHE IS STABLE.
--- NOTE | 2022-10-28 17:56 | CON ---
Date of Consultation: 10/28/2022 Reason For Consultation: Near syncope. History Of Present Illness: This is a 72-year-old female with history of diabetes and hypertension, on lisinopril. She apparently had a blood work done by primary care, Dr. Morin and her creatinine was severely elevated of her baseline. The patient apparently has been having a significant diarrhea fo r the past 3 days prior to the admission along with nausea and vomiting, could not keep anything down , and she was in acute renal failure and potassium was low. Apparently, she was recovering slowly an d she was walking by the nursing station today and then she slid on the floor. I was actually in the area and so I do not believe she had a syncopal episode, it was just generalized weakness. She coul d not hold herself standing, so she sat down on the floor. Past Medical History: As outlined above in the HPI. Medications: Refer to reconciliation sheet for detailed list. Allergies: NO KNOWN DRUG ALLERGIES. Family History: No premature coronary artery disease or cancer. Social History: She does not smoke or drink. Does not use any drugs. Review of Systems: All systems reviewed and they were negative except what mentioned in HPI. Physical Examination: Vital Signs: Temperature is 97.3, pulse 77, breathing at 14, blood pressure 164/75, saturating 100% on room air. General: Pleasant, elderly female, in no apparent distress. Head and Neck: Pupils are equal, reactive to light. Intact eye movements. No JVD. No cervical lym phadenopathy. Neck is supple. Thyroid is not enlarged. Lungs: Clear to auscultation bilaterally. No rhonchi, wheezing, or crackles. No accessory muscle u se. Heart: Irregular. No extra sounds. Abdomen: Soft, nontender. Bowel sounds positive. No organomegaly. No masses or hernia. No rigidi ty or rebound. Extremities: No clubbing or cyanosis. Intact pulses. Skin: No rash. Neurologic: Alert, awake. No acute focal deficits appreciated. Investigations: Today's labs; BUN is 32, creatinine 2.1 down from 5.2. Assessment And Recommendations: 1.Near syncopal episode. This could be neurological. Her blood pressure appears to be good; howeve r, she could be still lacking on fluids. Continue gentle IV hydration, maybe change the fluids to miller lf-normal saline due to elevated sodium and please obtain echocardiogram and we will check a troponin on her. Further recommendations to follow according to the echo results. 2.Acute renal failure due to severe dehydration from the fluid loss due to diarrhea and vomiting, re covering slowly and Nephrology is on board. SR/TRIPPL Voice ID: [id number] Report ID: [id number]
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
[2022-10-28] MEDS: MIRTAZAPINE 15 MG TAB PO SCH (20:26)
--- NOTE | 2022-10-28 21:17 | PN ---
Date of Progress Note: 10/28/2022 Chief Complaint: Acute kidney injury on chronic kidney disease. Subjective: Prior to this admission, the patient had routine lab work done and it showed severely el evated creatinine level. She was started on IV fluids and renal function is gradually improving. Th e patient has history of hypertension and she developed acute kidney injury secondary to hypovolemia. She had nausea, vomiting, and diarrhea prior to this admission. She was found to have metabolic ac idosis and she was on IV fluids with Lactated Ringer. Hypokalemia was treated with potassium chlorid e. Today she developed generalized weakness and Cardiology consultation and Neurology consultation a re requested for evaluation. She had presyncope. Although this morning she was feeling well and she did not have any complaints, in the afternoon she developed some generalized weakness and was transf erred to ICU for observation. Physical Examination: Lungs: Clear to auscultation bilaterally. Heart: S1, S2. Abdomen: Soft. Extremities: No edema. Review of Systems: The patient denies chest pain or palpitations. Denies nausea or vomiting. Denies hematuria or dysur ia. Impression And Plan: 1.Acute kidney injury. Renal ultrasound did not show hydronephrosis. The patient has small bilater al benign renal cyst and kidney size is slightly smaller than expected, which corresponds with chroni c kidney disease stage 3. 2.Hypertension. Monitor blood pressure closely. 3.Acute kidney injury. Continue IV fluids. 4.Hypokalemia. Today potassium is 3.9. 5.Metabolic acidosis, resolved. EB/MODL Voice ID: [id number] Report ID: [id number]
[2022-10-28] MEDS: TRAMADOL HCL 50 MG TAB PO PRN (22:13)
[2022-10-29] MEDS: Ringers Lactate 1,000 ML IV SCH (04:47)
[2022-10-29] MEDS: LEVOTHYROXINE SOD 0.05 MG TABLET PO SCH (05:05)
[2022-10-29 05:47] LABS: Albumin 2.6 g/dL (3.4-5.0); Phosphorus 2.8 mg/dL (2.5-4.9); Potassium 3.4 mmol/L (3.5-5.1)
[2022-10-29] MEDS ORDERED: POTASSIUM 25 MEQ EFFERV TAB PO ONE (08:00)
[2022-10-29] MEDS: POTASSIUM 25 MEQ EFFERV TAB PO SCH (08:00)
[2022-10-29] MEDS: levETIRAcetam 500 MG TAB PO SCH ×2 (08:01→19:49)
[2022-10-29] MEDS: GABAPENTIN 300 MG CAP PO SCH (08:01)
[2022-10-29] MEDS: BUSPIRONE HCL 5 MG TABLET PO SCH ×2 (08:01→19:50)
[2022-10-29] MEDS: DIPHENHYDRAMINE 25 MG TAB/CAP PO SCH (08:01)
[2022-10-29] MEDS: DULOXETINE 30 MG CAP PO SCH (08:01)
[2022-10-29] MEDS: NEPRO SHAKE 237 ML CAN PO SCH ×2 (08:03→19:50)
[2022-10-29] MEDS: LEFLUNOMIDE 10 MG PO SCH (08:47)
--- NOTE | 2022-10-29 09:40 | P.PN ---
Subjective Date of Service: 10/29/22 Chief Complaint: SHE FELT GREAT THIS AM. SHE WAS SITTING AND EATING, WANTING TO GO HOME. Subjective Pt with CKD baseline cr 1.3, had Adolfo peak Cr 5.3 , pt found unresponsive , moved to ICU , started on Keppra today feels better no diarrhea or nausea will switch IVF to D5W will start daily Mg replacement General:awake and alert HEENT PERRLA, moist mucose membrane neck: supple, no elevated JVD CHEST; CTAB, no wheezes or rales HEART : RRR. Normal S1,2 no murmur or rub Abd: soft, Nt Ext: no edema Skin : No rash A/p 1. Acute kidney injury secondary to poor perfusion, ATN secondary to GI loss, superimposed with VANESSA inhibitor. SCr improved to 2.8. Hold ACEI, ARB. baseline cr 1.3 [place] po fluid intake. IV fluid if po intake remains poor. Monitor renal panel. 2. Hypertension. Cont current med regimen. 3.Meatbolic acidosis , will change fluid to ringer lactate 4. Hypokalemia. KCl repletion prn., cont daily KCL, will add daily Mg 5. HypoMg. Mg repletion prn. 6. Gastroenteritis. , resolved, Per primary team. 7. DM2. Per primary team. 8. Anemia. Monitor cbc. 9. Hypercholermic acidosis : resolved 10: Hypernatremia: will change fluid to D5W 11: seizure ?: started on keppra ,pt reported Aura before attacks Physical Examination - Vital Signs Temperature: 98.1 F Blood Pressure: 125/63 Pulse: 64 Respirations: 12 Pulse Ox (%): 98 - Studies Microbiology Data (last 24 hrs): 10/24/22 22:11 Clean Catch Urine [place] Count - Final >100,000 CFU/ML. 10/24/22 22:11 Clean Catch Urine - Final Staph Epidermidis Medications List Reviewed: Yes
[2022-10-29] MEDS: MAGNESIUM OXIDE 400 MG TAB PO SCH (09:53)
[2022-10-29] MEDS: D5W 1,000 ML with POTASSIUM CL 20 MEQ IV SCH ×2 (10:25)
[2022-10-29] MEDS: TRAMADOL HCL 50 MG TAB PO PRN (15:35)
--- NOTE | 2022-10-29 18:29 | PN ---
Date of Progress Note: 10/29/2022 Subjective: Seen by bedside. She is doing well. No new complaints. On telemetry, no arrhythmias. Review of Systems: No chest pain, shortness of breath, orthopnea, cough, nausea, vomiting, diarrhea. All other systems reviewed are negative and they are negative. Physical Examination: Vital Signs: Temperature is 97.7, pulse 78, breathing at 16, blood pressure 141/67, saturating 99% o n room air. General: Pleasant, elderly female, no apparent distress. Head and Neck: Pupils are equal, reactive to light. Intact eye movements. No JVD. No cervical. N portia is supple. Thyroid is not enlarged. Lungs: Clear to auscultation bilaterally. No rhonchi, wheezing, or crackles. No accessory muscle u se. Heart: Regular rate and rhythm. No extra sounds. Abdomen: Soft, nontender. Bowel sounds positive. No organomegaly. No masses or hernia. No rigidi ty or rebound. Extremities: No clubbing, cyanosis. Intact pulses. Skin: No rash or nodules. Neurologic: Alert, awake, oriented x3. No acute focal deficits associated. Lymph nodes: No cervical adenopathy. Investigations: Her labs were reviewed. Assessment And Recommendations: 1.Near-syncope, likely due to dehydration, doing better. Continue IV fluid management. 2.Acute renal failure due to dehydration. She had significant fluid loss due to diarrhea and vomiting, which has stopped and Nephrology is on board for fluid management. SR/MODL Voice ID: [id number] Report ID: [id number]
[2022-10-29] MEDS: MIRTAZAPINE 15 MG TAB PO SCH (19:49)
--- NOTE | 2022-10-29 21:51 | P.PN ---
Subjective Date of Service: 10/29/22 Chief Complaint: SHE FELT GREAT THIS AM. SHE WAS SITTING AND EATING, WANTING TO GO HOME. Subjective: Improving SHE NEVER FELT BAD. SHE IS STABLE, DOES NOT FEEL BAD. DENIES ANY PAIN LATER EARLY AFTERNOON I WAS CALLED BY NURSES THAT SHE HAD PASSED OUT STANDING UP AND NOT WAKING UP. SHE HAD TACHYCARDIA AND SLIGLTLY HIGH BP. I MOVED HER TO ICU FOR BETTER SUPERVISION. CALLED DR. RESENDEZ AND ORDERED EEG STAT. WE DECIDED TO START KEPPRA FOR ATYPICAL SEIZURES IT HAS WORKED WELL FOR MANY PATIENTS. SHE WAS FULLY AWAKE AFTER AN HOUR OR SO. SHE IS LOT BETTER. GOT KEPPRA FOR ABSENCE SEIZURES. Physical Examination - Vital Signs Temperature: 96.8 F Blood Pressure: 154/73 Pulse: 76 Respirations: 18 Pulse Ox (%): 98 - Physical Exam General: Alert, In no apparent distress HEENT: Atraumatic, PERRLA, EOMI Neck: Supple, JVD not distended Respiratory: Clear to auscultation bilaterally, Normal air movement Cardiovascular: Regular rate/rhythm, Normal S1 S2 Gastrointestinal: Normal bowel sounds, No tenderness Musculoskeletal: No tenderness Integumentary: No rashes Neurological: Normal speech, Normal tone, Normal affect Lymphatics: No axilla or inguinal lymphadenopathy - Studies Medications List Reviewed: Yes Assessment And Plan - Current Problems (Diagnosis) (1) Acute prerenal failure Current Visit: Yes Status: Acute Plan: IVFLUIDS SHE IS IMPROVING ALREADY IT IS UNCLEAR WHY SHE HAS THIS. I SEE NO PROVOCATIVE FACTORS. DR. KERR ON CASE. CREAT IS COMING DOWN NOT SURE WHY SHE HAD THIS. MAY HAVE POOR PO INTAKE. (2) Hypokalemia Current Visit: Yes Status: Acute Plan: K REPLACED AND IT IS 3.8 NOW. (3) Anemia Current Visit: Yes Status: Acute Plan: MAY BE FROM ANEMIA OF CHRONIC DISEASE. CHECK PROFILE. (4) Hypophosphatemia Current Visit: Yes Status: Acute Plan: REPLACE WITH K (5) Absence seizure, atypical Current Visit: Yes Status: Acute Plan: I AGREE WITH KEPPRA. MANY TIMES EXTENSIVE EVALUATION DOES NOT FIND ANYTHING AND WE DO HAVE TO DO THERAPEUTIC TRIAL. SHE IS STABLE. STABLE , NO MORE SEIZURES OF SYNCOPE
[2022-10-30] MEDS: D5W 1,000 ML with POTASSIUM CL 20 MEQ IV SCH ×4 (02:30→02:45)
[2022-10-30 05:30] LABS: Potassium 4.2 mmol/L (3.5-5.1)
[2022-10-30] MEDS: LEVOTHYROXINE SOD 0.05 MG TABLET PO SCH (05:30)
[2022-10-30 05:32] LABS: Magnesium 1.4 mg/dL (1.6-2.4)
--- NOTE | 2022-10-30 08:10 | ECHO ---
HEIGHT: 5 ft 2 in WEIGHT: 131 lb 4 oz DATE OF STUDY: 10/29/[address]: Pierre Connolly 2-DIMENSIONAL: YES M.MODE: YES DOPPLER: YES COLOR FLOW: YES TDS: PORTABLE: YES DEFINITY: BUBBLE STUDY: DIAGNOSIS: SYNCOPAL EPISODES CARDIAC HISTORY: CATHERIZATION: NO SURGERY: NO PROSTHETIC VALVE: NO PACEMAKER: NO MEASUREMENTS (cm) DIASTOLIC (NORMALS) SYSTOLIC (NORMALS) IVSd 1.0 (0.6-1.2) LA Diam 2.4 (1.9-4.0) LVEF 68% LVIDd 3.9 (3.5-5.7) LVIDs 2.4 (2.0-3.5) %FS 37% LVPWd 1.0 (0.6-1.2) Ao Diam 2.4 (2.0-3.7) 2 DIMENSIONAL ASSESSMENT: RIGHT ATRIUM: NORMAL LEFT ATRIUM: NORMAL RIGHT VENTRICLE: NORMAL LEFT VENTRICLE: NORMAL TRICUSPID VALVE: MILD TRICUSPID REGURGITATION MITRAL VALVE: MILD MITRAL REGURGITATION PULMONIC VALVE: MILD PULMONIC INSUFFICIENCY AORTIC VALVE: MILD AORTIC INSUFFICIENCY PERICARDIAL EFFUSION: NONE AORTIC ROOT: NORMAL LEFT VENTRICULAR WALL MOTION: NORMAL DOPPLER/COLOR FLOW: SEE BELOW COMMENTS: 1. NORMAL LEFT VENTRICULAR EJECTION FRACTION 60-65% 2. NORMAL WALL MOTION 3. MILD MITRAL REGURGITATION, AORTIC INSUFFICIENCY, TRICUSPID REGURGITATION, PULMONIC INSUFFICIENCY 4. MILD DIASTOLIC DYSFUNCTION TECHNOLOGIST: KARTIK SADLER
[2022-10-30] MEDS: MAGNESIUM OXIDE 400 MG TAB PO SCH (08:13)
[2022-10-30] MEDS: BUSPIRONE HCL 5 MG TABLET PO SCH (08:13)
[2022-10-30] MEDS: DIPHENHYDRAMINE 25 MG TAB/CAP PO SCH (08:13)
[2022-10-30] MEDS: DULOXETINE 30 MG CAP PO SCH (08:13)
[2022-10-30] MEDS: GABAPENTIN 300 MG CAP PO SCH (08:14)
[2022-10-30] MEDS: levETIRAcetam 500 MG TAB PO SCH (08:16)
[2022-10-30] MEDS: NEPRO SHAKE 237 ML CAN PO SCH (08:17)
[2022-10-30 08:22] LABS: C.diff Antigen/Toxin Ag neg : Tox neg (NEG : NEG)
[2022-10-30 08:43] LABS: Absolute Lymphocytes (CBC) 1.4 K/uL (0.7-4.9); Hematocrit 29.1 % (36.0-45.0); Lymphocytes % 19.2 % (15.3-44.8); MPV 6.5 fL (7.6-11.3); RBC Red Blood Cell Count 3.24 M/uL (3.86-4.86)
[2022-10-30] MEDS ORDERED: Magnesium Sulfate 2gm IVPB 2 G/50 ML BAG IV ONE (09:00)
[2022-10-30] MEDS: LEFLUNOMIDE 10 MG PO SCH (09:00)
[2022-10-30] MEDS: POTASSIUM 25 MEQ EFFERV TAB PO SCH (13:38)
[2022-10-30 15:07] VITALS: O2SAT 97
[2022-10-30 17:19] VITALS: BP 130/69
[2022-10-30 17:20] VITALS: TEMP 97.4
--- NOTE | 2022-10-30 17:32 | P.DS ---
Admission Date: 10/25/22 Discharge Date: 10/30/22 Disposition: DC HOME/HOME HEALTH CARE Discharge Condition: FAIR Reason for Admission: SHE FELT GREAT THIS AM. SHE WAS SITTING AND EATING, WANTING TO GO HOME. - Problems (1) Acute prerenal failure Current Visit: Yes Status: Acute (2) Hypokalemia Current Visit: Yes Status: Acute (3) Anemia Current Visit: Yes Status: Acute (4) Hypophosphatemia Current Visit: Yes Status: Acute (5) Absence seizure, atypical Current Visit: Yes Status: Acute Brief History of Present Illness: ELIAZAR HAS NO SS AND WAS SENT TO ER BY DR JIM FOR LOW K AND HIGH CREAT FROM LAB DONE BY DR NG. SHE IS ON IV FLUIDS AND K REPLACEMENT. SHE HAS NOT BEEN ON DIURETICS OR HAS HAD ANY GI LOSS OF FLUIDS. Hospital Course: MS PEREA HAD A LONG COURSE AT [facility]. SHE CAME WITH ACUTE RENAL FAILURE AND IMPROVED TO HER BASLINE OF CREAT ABOUT2.0. SHE HAD EPISODE OF SYNCOPE FOLLOWED BY SOMNOLENCE . THIS IS LIKE ABSENCE SEIZURES AND SHE WILL DO BETTER ON KEPPRA. I TALKED TO . WE STOPPED LISINOPRIL, METFORMIN CREAT IS AT 2.0 NOW. SHE WILL ALSO FU IN OFFICE IN A WEEK AND WITH IN A WEEK. Vital Signs/Physical Exam: Temp Pulse Resp BP Pulse Ox 97.4 F 88 30 H 130/69 100 10/30/22 16:00 10/30/22 16:00 10/30/22 16:00 10/30/22 16:00 10/30/22 05:00 General: Alert, In no apparent distress HEENT: Atraumatic, PERRLA, EOMI Neck: Supple, JVD not distended Respiratory: Clear to auscultation bilaterally, Normal air movement Cardiovascular: Regular rate/rhythm, Normal S1 S2 Gastrointestinal: Normal bowel sounds, No tenderness Musculoskeletal: No tenderness Integumentary: No rashes Neurological: Normal speech, Normal tone, Normal affect Lymphatics: No axilla or inguinal lymphadenopathy Laboratory Data at Discharge: WBC 7.50 K/uL (4.3-10.9) 10/30/22 08:32 Hgb 9.6 g/dL (12.0-15.0) L 10/30/22 08:32 Hct 29.1 % (36.0-45.0) L 10/30/22 08:32 Plt Count 231 K/uL (152-406) 10/30/22 08:32 Sodium 144 mmol/L (136-145) 10/30/22 04:24 Potassium 4.2 mmol/L (3.5-5.1) D 10/30/22 04:24 BUN 32 mg/dL (7-18) H 10/30/22 04:24 Creatinine 2.06 mg/dL (0.55-1.02) H 10/30/22 04:24 Glucose 138 mg/dL (74-106) H 10/30/22 04:24 Uric Acid 13.0 mg/dL (2.6-6.0) H 10/25/22 05:52 Phosphorus 2.8 mg/dL (2.5-4.9) 10/29/22 04:39 Magnesium Cancelled 10/30/22 06:00 Total Bilirubin 0.5 mg/dL (0.2-1.0) 10/23/22 19:00 AST 14 U/L (15-37) L 10/23/22 19:00 ALT 21 U/L (13-56) 10/23/22 19:00 Alkaline Phosphatase 83 U/L (45-117) 10/23/22 19:00 Home Medications: Buspirone HCl [Buspar] 10 mg PO BID 10/24/22 Diphenhydramine HCl [Benadryl Allergy] 25 - 50 mg PO BIDP PRN 10/24/22 Duloxetine HCl [Cymbalta] 1 tab PO DAILY 10/24/22 Gabapentin 300 mg PO DAILY 10/24/22 Leflunomide 10 mg PO DAILY 10/24/22 Levothyroxine Sodium [Levothyroxine] 50 mcg PO [id number] 10/24/22 Mirtazapine 7.5 mg PO BEDTIME 10/24/22 Ubidecarenone [Co Q-10] 400 mg PO DAILY 10/24/22 hydrOXYzine HCL [Atarax*] 25 mg PO BID PRN 10/24/22 traMADol HCL [Ultram*] 1 tab PO Q6H PRN 10/24/22 levETIRAcetam [Keppra*] 250 mg PO BID #60 tab 10/30/22 New Medications: levETIRAcetam [Keppra*] 250 mg PO BID #60 tab Followup: Thalia Mejia MD [Primary Care Provider] -
--- NOTE | 2022-10-30 20:03 | PN ---
Date of Progress Note: 10/30/2022 Subjective: The patient was admitted with acute kidney injury secondary to poor intake, GI loss superimposed with diuresis. The patient was started on hydration. Kidney function gradually improved. The patient developed SVT and was transferred to ICU. The patient has been asymptomatic, started eating well. Physical Examination: Vital Signs: Blood pressure of 109/50 and pulse of 81. Chest: Clear to auscultation. Heart: S1, S2 regular. Abdomen: Soft, nontender. Extremities: No edema. Neurologic: Alert. No focality. Laboratory Data: Hemoglobin 9.7. Sodium 144, potassium 4.2, bicarb 29, BUN 32, creatinine 2, GFR 25, magnesium 1.4, and calcium 8.2. Current Medications: Include: 1. Buspirone. 2. Clozapine. 3. Gabapentin. 4. Keppra. 5. Levothyroxine. 6. KCl. 7. Magnesium sulfate. Assessment And Plan: 1. Acute kidney injury, normal-sized kidney, secondary to poor perfusion, acute tubular necrosis superimposed with diuresis and ARB, recovered, trending down. I am going to discontinue IV fluid. 2. Hypokalemia. We will supplement. 3. Hypomagnesemia. We will supplement. 4. Supraventricular tachycardia, by Primary. 5. Gastroenteritis. Continue current antibiotic. Will follow up with Primary. Time spent examining the patient [id number] reviewing data lab and radiology discussing the case with the patient placing order discussing the case with the steam and power supervisor including nursing discussing the case with the hospitalist more than 35-minute RADHA Voice ID: [id number] Report ID: [id number]
--- NOTE | 2022-10-31 15:35 | EKG ---
Test Date: 2022-10-28 Test Time: 14:10:15 Padder Cushion: GERRY MEASUREMENT RESULTS: Intervals: Rate: 96 MN: 168 QRSD: 84 QT: 396 QTc: 500 Moon: P: 54 MN: 168 QRS: 16 T: 71 INTERPRETIVE STATEMENTS: Normal sinus rhythm Nonspecific ST and T wave abnormality Prolonged QT Abnormal ECG Compared to ECG 06/05/2022 15:14:55 ST (T wave) deviation now present Prolonged QT interval now present Sinus bradycardia no longer present Right bundle-branch block no longer present Electronically Signed On 10-31-22 15:32:46 COMMUNITY SUPPORT ASSOCIATE by Pierre Connolly
[2022-10-31 18:52] LABS: Albumin, (SPE) 3.2 g/dL (3.8-4.8); Alpha-1-Globulins 0.3 g/dL (0.2-0.3); Alpha-2-Globulins 0.8 g/dL (0.5-0.9); Gamma Globulins 0.5 g/dL (0.8-1.7); INTERPRETATION REPORT
--- NOTE | 2022-11-01 07:18 | EEG ---
CHART: [id number] TEST ID#: [id number] DATE OF STUDY: 10-29-2022 THE EEG WAS RECORDED PORTABLE IN THE ICU ON A 17 CHANNEL MACHINE. ELECTRODES WERE APPLIED IN THE USUAL MANNER USING THE INTERNATIONAL 10-20 SYSTEM. THE WAKING BACKGROUND RHYTHM IN THIS RECORD CONSISTS OF WELL DEVELOPED AND WELL ORGANIZED WAVES OF 10 HZ., MAXIMAL IN THE POSTERIOR HEAD REGIONS WHICH ATTENUATE NORMALLY WITH EYE OPENING. LOW-VOLTAGE 18-22 HZ ACTIVITY IS EXPRESSED IN THE FRONTAL REGIONS. THERE ARE NO FOCAL OR LATERALIZING FEATURES. NO EPILEPTIFORM ACTIVITY APPEARS. SLEEP OCCURRED NATURALLY. IN ADDITION TO NORMAL SLEEP PATTERNS. HYPERVENTILATION WAS NOT PERFORMED. PHOTIC STIMULATION PRODUCED FAIR DRIVING BILATERALLY. IMPRESSION: NORMAL EEG FOR THE AGE OF THE PATIENT IN [place], DROWSINESS AND SLEEP.
[2022-11-01 19:31] LABS: Immunoglobulin A 114 mg/dL (70-320); Tissue Transglutaminase IgA Ab <1.0 U/mL (<15.0)
== END 2022-10-30 16:50 | disposition home health service (06) | DRG 683 ==
LOC: ER 17:42 → ERHOLD 21:35 → 2ND 10-24 08:18 → OBSVTOIN 10-25 08:01 → 3RD-ICU 10-28 14:16
PROVIDERS: ADMIT Internal Medicine; ATTEND Internal Medicine
DX: N17.9 Acute kidney failure, unspecified (principal); E87.0 Hyperosmolality and hypernatremia; E87.20 Acidosis, unspecified; I47.1 Supraventricular tachycardia; N18.4 Chronic kidney disease, stage 4 (severe); I12.9 Hypertensive chronic kidney disease with stage 1 through stage 4 chronic kidney disease, or unspecified chronic kidney disease; E11.22 Type 2 diabetes mellitus with diabetic chronic kidney disease; E03.9 Hypothyroidism, unspecified; E86.0 Dehydration; E87.6 Hypokalemia; G89.29 Other chronic pain; E83.42 Hypomagnesemia; K52.9 Noninfective gastroenteritis and colitis, unspecified; D63.1 Anemia in chronic kidney disease; G40.A09 Absence epileptic syndrome, not intractable, without status epilepticus; Z86.73 Personal history of transient ischemic attack (TIA), and cerebral infarction without residual deficits; Z79.899 Other long term (current) drug therapy; Z79.890 Hormone replacement therapy; Z20.822 Contact with and (suspected) exposure to COVID-19
CPT/HCPCS: 36415; 76770; 80048; 80053; 80069; 81001; 81003; 82274; 82550; 82570; 82607; 82728; 82784; 82805; 82947; 83520; 83540; 83735; 83970; 84132; 84156; 84165; 84443; 84466; 84484; 84550; 85025; 85044; 86021; 86038; 86160; 86225; 86364; 86430; 87077; 87086; 87088; 87186; 87324; 87811; 93005; 93306; 95819; 99284; G0378; J1644; J3475; J3480; J7030; J7040; J7050; J7120